=== PATIENT | female | born 1945 | race Caucasian/White ===

== ENCOUNTER 2016-12-13 14:07 | Outpatient (CLI) | payer MEDICARE | END 2016-12-13 14:08 | disposition home or self-care (01) | DX: I10 Essential (primary) hypertension (principal); E78.5 Hyperlipidemia, unspecified; E03.9 Hypothyroidism, unspecified ==

== ENCOUNTER 2017-03-31 08:08 | Outpatient (CLI) | payer MEDICARE | END 2017-03-31 08:09 | disposition home or self-care (01) | LOC: LAB.WCP 08:08 | PROVIDERS: ATTEND Physician Assistant Medical | DX: E03.9 Hypothyroidism, unspecified (principal) | CPT/HCPCS: 36415; 84443 ==

== ENCOUNTER 2017-06-19 10:44 | Outpatient (CLI) | payer MEDICARE | END 2017-06-19 10:45 | disposition home or self-care (01) | LOC: LAB.WCP 10:44 | PROVIDERS: ATTEND Physician Assistant Medical | DX: E03.9 Hypothyroidism, unspecified (principal) | CPT/HCPCS: 36415; 84443 ==

== ENCOUNTER 2017-07-11 13:16 | Outpatient (CLI) | payer MEDICARE ==
--- NOTE | 2017-07-12 16:52 | Mammography Report ---
DIGITAL SCREENING MAMMOGRAM: 07/11/2017 CLINICAL INDICATION: A 71-year-old with history of late childbearing for screening. COMPARISON: 12/2015, 10/2014, 07/2013, 06/2012, 05/2011, 04/2010. TECHNIQUE: Routine CC and MLO projections were obtained of the breasts. FINDINGS: Scattered fibroglandular tissue is present within the breasts. There are no dominant mass es, suspicious microcalcifications, or secondary signs of malignancy. In comparison to the previous studies, there are no significant changes. ASSESSMENT: NO MAMMOGRAPHIC EVIDENCE OF MALIGNANCY. NO SIGNIFICANT INTERVAL CHANGES. RECOMMENDATION: Screening mammography is recommended annually. BIRADS category 1 - negative. STANDARD QUALIFYING STATEMENTS 1. This examination was reviewed with the aid of Computed-Aided Detection (CAD). 2. A negative or benign imaging report should not delay biopsy if clinically suspicious findings are present. Consider surgical consultation if warranted. More than 5% of cancers are not identified b y imaging. 3. Dense breasts may obscure an underlying neoplasm. JOB #: [id number] EXT JOB #:[id number]
== END 2017-07-11 13:17 | disposition home or self-care (01) ==
LOC: DI 13:16
PROVIDERS: ATTEND Physician Assistant Medical
DX: Z12.31 Encounter for screening mammogram for malignant neoplasm of breast (principal)
CPT/HCPCS: 77067

== ENCOUNTER 2017-12-15 14:06 | Outpatient (CLI) | payer MEDICARE ==
[2017-12-15 19:01] LABS: BASOPHILS # (AUTO) 0.1 10^3/uL (0.0-0.1); BASOPHILS % (AUTO) 0.9 %; EOSINOPHILS # (AUTO) 0.3 10^3/uL (0.0-0.7); EOSINOPHILS % (AUTO) 2.6 %; HGB - HEMOGLOBIN 12.9 g/dL (12.0-16.0); LYMPHOCYTES # (AUTO) 1.6 10^3/uL (1.5-3.5); LYMPHOCYTES % (AUTO) 16.5 %; MEAN CORPUSCULAR HEMOGLOBIN 28.8 pg (27.0-31.0); MEAN CORPUSCULAR HGB CONC 32.7 g/dL (32.0-36.0); MEAN CORPUSCULAR VOLUME 88.2 fL (81.0-99.0); MONOCYTES # (AUTO) 0.7 10^3/uL (0.0-1.0); MONOCYTES % (AUTO) 7.7 %; NEUTROPHILS # (AUTO) 6.9 10^3/uL (1.5-6.6); NEUTROPHILS % (AUTO) 72.3 %; PLT - PLATELET COUNT 234 10^3/uL (130-450); RED BLOOD COUNT 4.47 10^6/uL (4.20-5.40); RED CELL DISTRIBUTION WIDTH 13.8 % (12.0-15.0); WHITE BLOOD COUNT 9.6 x10^3/uL (4.8-10.8)
== END 2017-12-15 14:07 | disposition home or self-care (01) ==
LOC: LAB.WCP 14:06
PROVIDERS: ATTEND Physician Assistant
DX: M10.9 Gout, unspecified (principal); M00.849 Arthritis due to other bacteria, unspecified hand
CPT/HCPCS: 36415; 84550; 85025

== ENCOUNTER 2018-01-16 07:57 | Outpatient (CLI) | payer MEDICARE ==
[2018-01-16 12:47] LABS: BASOPHILS # (AUTO) 0.1 10^3/uL (0.0-0.1); BASOPHILS % (AUTO) 1.3 %; EOSINOPHILS # (AUTO) 0.4 10^3/uL (0.0-0.7); EOSINOPHILS % (AUTO) 7.8 %; HGB - HEMOGLOBIN 13.3 g/dL (12.0-16.0); LYMPHOCYTES # (AUTO) 1.6 10^3/uL (1.5-3.5); LYMPHOCYTES % (AUTO) 30.7 %; MEAN CORPUSCULAR HEMOGLOBIN 29.6 pg (27.0-31.0); MEAN CORPUSCULAR HGB CONC 33.8 g/dL (32.0-36.0); MEAN CORPUSCULAR VOLUME 87.7 fL (81.0-99.0); MEAN PLATELET VOLUME 10.1 fL (7.9-10.8); MONOCYTES # (AUTO) 0.5 10^3/uL (0.0-1.0); MONOCYTES % (AUTO) 9.2 %; NEUTROPHILS # (AUTO) 2.6 10^3/uL (1.5-6.6); PLT - PLATELET COUNT 211 10^3/uL (130-450); WHITE BLOOD COUNT 5.2 x10^3/uL (4.8-10.8)
[2018-01-16 13:13] LABS: ALBUMIN 4.1 g/dL (3.2-5.5); ALBUMIN/GLOBULIN RATIO 1.6 (1.0-2.2); ALKALINE PHOSPHATASE 63 IU/L (42-121); ALT ALANINE AMINOTRANSFERASE 28 IU/L (10-60); AST ASPARTATE AMINOTRANSFERASE 26 IU/L (10-42); BILIRUBIN,TOTAL 0.5 mg/dL (0.2-1.0); BUN - BLOOD UREA NITROGEN 25 mg/dL (6-20); CALCIUM 9.1 mg/dL (8.5-10.3); CARBON DIOXIDE - CO2 30 mmol/L (21-32); CHLORIDE 103 mmol/L (101-111); CHOL/HDL RATIO 3.1 (<4.4); CHOLESTEROL 172 mg/dL; CREATININE 1.1 mg/dL (0.4-1.0); GFR - MDRD 49 (>89); GLUCOSE 93 mg/dL (70-100); HDL CHOLESTEROL 56 mg/dL; LDL CHOLESTEROL,CALCULATED 93 mg/dL; LDL/HDL RATIO 1.7 (<4.4); SODIUM 139 mmol/L (135-145); TOTAL PROTEIN 6.6 g/dL (6.7-8.2); URIC ACID 7.8 mg/dL (2.6-7.2); VLDL CHOLESTEROL 23 mg/dL
== END 2018-01-16 07:58 | disposition home or self-care (01) ==
LOC: LAB.WCP 07:57
PROVIDERS: ATTEND Physician Assistant Medical
DX: E78.5 Hyperlipidemia, unspecified (principal); E03.9 Hypothyroidism, unspecified; M10.9 Gout, unspecified; J30.2 Other seasonal allergic rhinitis
CPT/HCPCS: 36415; 80053; 80061; 83721; 84443; 84550; 85025

== ENCOUNTER → 2018-07-27 | Outpatient (CLI) | payer MEDICARE ==
[2018-07-27 13:18] LABS: ALBUMIN 3.9 g/dL (3.2-5.5); ALBUMIN/GLOBULIN RATIO 1.4 (1.0-2.2); ALKALINE PHOSPHATASE 70 IU/L (42-121); ALT ALANINE AMINOTRANSFERASE 29 IU/L (10-60); AST ASPARTATE AMINOTRANSFERASE 26 IU/L (10-42); BILIRUBIN,TOTAL 0.8 mg/dL (0.2-1.0); BUN - BLOOD UREA NITROGEN 28 mg/dL (6-20); CALCIUM 9.1 mg/dL (8.5-10.3); CARBON DIOXIDE - CO2 29 mmol/L (21-32); CHLORIDE 102 mmol/L (101-111); CHOL/HDL RATIO 2.4 (<4.4); CHOLESTEROL 166 mg/dL; CREATININE 1.1 mg/dL (0.4-1.0); GFR - MDRD 49 (>89); GLUCOSE 89 mg/dL (70-100); HDL CHOLESTEROL 70 mg/dL; LDL CHOLESTEROL,CALCULATED 82 mg/dL; LDL/HDL RATIO 1.2 (<4.4); SODIUM 139 mmol/L (135-145); TOTAL PROTEIN 6.6 g/dL (6.7-8.2); VLDL CHOLESTEROL 14 mg/dL
== END ==
LOC: LAB.WCP 08:13
PROVIDERS: ATTEND Physician Assistant Medical
DX: E78.5 Hyperlipidemia, unspecified (principal)
CPT/HCPCS: 36415; 80053; 80061; 83721; 84550

== ENCOUNTER 2018-10-09 11:10 | Outpatient (CLI) | payer MEDICARE ==
--- NOTE | 2018-10-09 15:59 | CT Report ---
Reason: DOUBLE VISION Procedure Date: 10/09/2018 Accession Number: [id number] / [id number] Procedure: CT - Head W/O CPT Code: FULL RESULT: EXAM: CT HEAD EXAM DATE: 10/09/2018 11:39 AM. CLINICAL HISTORY: Double vision. COMPARISON: None. TECHNIQUE: Multiaxial CT images were obtained from the foramen magnum to the vertex. Reformats: Sagittal and coronal. IV contrast: None. In accordance with CT protocol optimization, one or more of the following dose reduction techniques were utilized for this exam: automated exposure control, adjustment of mA and/or KV based on patient size, or use of iterative reconstructive technique. FINDINGS: Parenchyma: No intraparenchymal hemorrhage. No evidence of mass, midline shift. Moran-white differentiation is distinct. Basal ganglia mineralization bilaterally. Extraaxial Spaces: Normal for age. No subdural or epidural collections identified. Ventricles: Normal in size and position. Sinuses and Orbits: Imaged paranasal sinuses, orbits, and mastoids show no significant abnormality. Bones: No evidence of fracture or calvarial defect. Other: None. IMPRESSION: No encephalomalacia or intracranial hemorrhage is detected. RADIA
== END 2018-10-09 11:11 | disposition home or self-care (01) ==
LOC: DI 11:10
PROVIDERS: ATTEND Physician Assistant Medical
DX: H53.2 Diplopia (principal)
CPT/HCPCS: 70450

== ENCOUNTER 2018-10-31 12:44 | Outpatient (CLI) | payer MEDICARE ==
[2018-10-31] MEDS ORDERED: GADOBUTROL 7.5 MMOL/7.5 ML VIAL ONE (13:03)
[2018-10-31] MEDS ORDERED: GADOBUTROL 7.5 MMOL/7.5 ML VIAL IVP ONE (13:39)
--- NOTE | 2018-10-31 15:30 | MRI Report ---
Reason: DOUBLE VISION Procedure Date: 10/31/2018 Accession Number: [id number] / [id number] Procedure: MRI - Brain W/WO CPT Code: FULL RESULT: EXAM: MRI BRAIN WITHOUT AND WITH CONTRAST. EXAM DATE: 10/31/2018 02:03 PM. CLINICAL HISTORY: Double vision. COMPARISON: No prior brain MRI. TECHNIQUE: Multiplanar, multisequence T1-weighted and fluid-sensitive MR sequences of the brain were performed. Sequences optimized for routine evaluation. Other: None. IV Contrast: Without and with 6.5 mL Gadavist. FINDINGS: Brain Volume: Normal for age. Parenchyma: No restricted diffusion to suggest acute or recent ischemic infarct. No cerebral hemorrhage. No mass effect, midline shift or abnormal subdural fluid collection. Mild to moderate nonspecific cerebral white matter disease. Multiple regions of patchy and nodular abnormal T2 hyperintensity are present in both cerebral hemispheres, likely secondary to aging and chronic microangiopathy. No abnormal enhancement. No evidence for intracranial enhancing or space occupying mass. Ventricles/Cisterns: No hydrocephalus. No abnormal extra-axial fluid collection or hemorrhage. Orbits: Previous lens extractions. No evidence for exophthalmos or intraorbital space occupying mass. Sella Turcica: No space-occupying mass. Unremarkable appearance of the optic chiasm. IAC: Symmetric and unremarkable. Vasculature: Normal signal flow void is seen in the major arterial structures at the skull base. The dural sinuses are patent and enhance normally. Sinuses: No acute sinus disease. Bones: Susceptibility artifact from multilevel posterior cervical spine fusion hardware. Other: None. IMPRESSION: No acute abnormality or enhancing mass. Chronic appearing age-related changes. No specific lesion identified to explain double vision. RADIA
== END 2018-10-31 12:45 | disposition home or self-care (01) ==
LOC: DI 12:44
PROVIDERS: ATTEND Physician Assistant Medical
DX: H53.2 Diplopia (principal)
CPT/HCPCS: 70553; A9585

== ENCOUNTER 2018-11-30 08:00 | Outpatient (CLI) | payer MEDICARE | END 2018-11-30 23:59 | disposition home or self-care (01) | LOC: LAB.WCP 08:00 | PROVIDERS: ATTEND Physician Assistant Medical | DX: Z51.81 Encounter for therapeutic drug level monitoring (principal); Z86.711 Personal history of pulmonary embolism; Z79.01 Long term (current) use of anticoagulants ==

== ENCOUNTER 2018-12-28 08:00 | Outpatient (CLI) | payer MEDICARE | END 2018-12-28 23:59 | disposition home or self-care (01) | LOC: LAB.WCP 08:00 | PROVIDERS: ATTEND Family Medicine | DX: Z51.81 Encounter for therapeutic drug level monitoring (principal); Z86.711 Personal history of pulmonary embolism; Z79.01 Long term (current) use of anticoagulants ==

== ENCOUNTER 2019-01-29 15:25 | Outpatient (CLI) | payer MEDICARE ==
[2019-01-29 19:58] LABS: BUN - BLOOD UREA NITROGEN 29 mg/dL (6-20); CALCIUM 9.1 mg/dL (8.5-10.3); CARBON DIOXIDE - CO2 29 mmol/L (21-32); CHLORIDE 104 mmol/L (101-111); CREATININE 1.2 mg/dL (0.4-1.0); GFR - MDRD 44 (>89); GLUCOSE 150 mg/dL (70-100); SODIUM 142 mmol/L (135-145)
[2019-01-29 20:29] LABS: RHEUMATOID FACTOR NEGATIVE (Negative)
[2019-01-29 20:55] LABS: CRP - C-REACTIVE PROTEIN < 1.0 mg/dL (0-1.0)
[2019-02-01 14:42] LABS: ANA SCREEN NEGATIVE (NEGATIVE)
== END 2019-01-29 23:59 | disposition home or self-care (01) ==
LOC: LAB.WCP 15:25
PROVIDERS: ATTEND Physician Assistant
DX: M25.50 Pain in unspecified joint (principal)
CPT/HCPCS: 36415; 80048; 85651; 86038; 86140; 86430

== ENCOUNTER 2019-02-18 08:40 | Outpatient (CLI) | payer MEDICARE ==
[2019-02-18 12:35] LABS: ALBUMIN 4.1 g/dL (3.2-5.5); ALBUMIN/GLOBULIN RATIO 1.6 (1.0-2.2); ALKALINE PHOSPHATASE 66 IU/L (42-121); ALT ALANINE AMINOTRANSFERASE 36 IU/L (10-60); AST ASPARTATE AMINOTRANSFERASE 28 IU/L (10-42); BUN - BLOOD UREA NITROGEN 26 mg/dL (6-20); CALCIUM 9.5 mg/dL (8.5-10.3); CARBON DIOXIDE - CO2 29 mmol/L (21-32); CHLORIDE 104 mmol/L (101-111); CHOL/HDL RATIO 2.3 (<4.4); CHOLESTEROL 161 mg/dL; CREATININE 1.1 mg/dL (0.4-1.0); GFR - MDRD 49 (>89); GLUCOSE 101 mg/dL (70-100); HDL CHOLESTEROL 70 mg/dL; LDL CHOLESTEROL,CALCULATED 78 mg/dL; LDL/HDL RATIO 1.1 (<4.4); SODIUM 141 mmol/L (135-145); TOTAL PROTEIN 6.6 g/dL (6.7-8.2); VLDL CHOLESTEROL 13 mg/dL
[2019-02-18 12:43] LABS: BASOPHILS # (AUTO) 0.1 10^3/uL (0.0-0.1); BASOPHILS % (AUTO) 1.5 %; EOSINOPHILS # (AUTO) 0.3 10^3/uL (0.0-0.7); EOSINOPHILS % (AUTO) 5.7 %; HGB - HEMOGLOBIN 13.1 g/dL (12.0-16.0); LYMPHOCYTES # (AUTO) 1.4 10^3/uL (1.5-3.5); LYMPHOCYTES % (AUTO) 27.9 %; MEAN CORPUSCULAR HEMOGLOBIN 29.1 pg (27.0-31.0); MEAN CORPUSCULAR VOLUME 88.3 fL (81.0-99.0); MEAN PLATELET VOLUME 10.2 fL (7.9-10.8); MONOCYTES # (AUTO) 0.6 10^3/uL (0.0-1.0); MONOCYTES % (AUTO) 12.5 %; NEUTROPHILS # (AUTO) 2.7 10^3/uL (1.5-6.6); NEUTROPHILS % (AUTO) 52.4 %; PLT - PLATELET COUNT 213 10^3/uL (130-450); RED BLOOD COUNT 4.48 10^6/uL (4.20-5.40); RED CELL DISTRIBUTION WIDTH 14.7 % (12.0-15.0); WHITE BLOOD COUNT 5.2 x10^3/uL (4.8-10.8)
== END 2019-02-18 08:41 | disposition home or self-care (01) ==
LOC: LAB.WCP 08:40
PROVIDERS: ATTEND Physician Assistant Medical
DX: E03.9 Hypothyroidism, unspecified (principal); E78.5 Hyperlipidemia, unspecified; J30.2 Other seasonal allergic rhinitis
CPT/HCPCS: 36415; 80053; 80061; 83721; 84443; 85025

== ENCOUNTER 2019-03-05 13:59 | Outpatient (CLI) | payer MEDICARE ==
--- NOTE | 2019-03-05 15:11 | XRAY Report ---
Reason: OSTEOARTHRITIS,KNEES BILATERAL Procedure Date: 03/05/2019 Accession Number: [id number] / [id number] Procedure: XR - Knee 3 View BILAT CPT Code: FULL RESULT: EXAMS: 1. RIGHT KNEE RADIOGRAPHY 2. LEFT KNEE RADIOGRAPHY EXAM DATE:03/05/2019 02:23 PM. CLINICAL HISTORY:Osteoarthritis, knees bilateral. COMPARISON: KNEE 4 VIEW RT 07/23/2013 10:19 AM. TECHNIQUE: 3 views each. FINDINGS: Right Knee: Bones: Normal. No fractures or bone lesions. Joints: Tricompartmental joint space loss with marginal osteophytosis, overall moderate. No significant joint effusion or subluxation. Soft Tissues: Normal. No soft tissue swelling. Left Knee: Bones: Normal. No fractures or bone lesions. Joints: Tricompartmental joint space loss with marginal osteophytosis and without significant effusion, overall moderate. No subluxation. Soft Tissues: Normal. No soft tissue swelling. IMPRESSION: Bilateral tricompartmental degenerative changes. RADIA
== END 2019-03-05 14:00 | disposition home or self-care (01) ==
LOC: DI 13:59
PROVIDERS: ATTEND Physician Assistant Medical
DX: M17.0 Bilateral primary osteoarthritis of knee (principal)

== ENCOUNTER 2019-04-19 08:00 | Outpatient (CLI) | payer MEDICARE | END 2019-04-19 08:01 | disposition home or self-care (01) | LOC: LAB.WCP 08:00 | PROVIDERS: ATTEND Physician Assistant Medical | DX: I80.209 Phlebitis and thrombophlebitis of unspecified deep vessels of unspecified lower extremity (principal); Z86.711 Personal history of pulmonary embolism; Z79.01 Long term (current) use of anticoagulants ==

== ENCOUNTER 2019-05-17 08:00 | Outpatient (CLI) | payer MEDICARE | END 2019-05-17 23:59 | disposition home or self-care (01) | LOC: LAB.WCP 08:00 | PROVIDERS: ATTEND Physician Assistant | DX: Z79.01 Long term (current) use of anticoagulants (principal); Z86.711 Personal history of pulmonary embolism ==

== ENCOUNTER 2019-06-14 08:00 | Outpatient (CLI) | payer MEDICARE | END 2019-06-14 23:59 | disposition home or self-care (01) | LOC: LAB.WCP 08:00 | PROVIDERS: ATTEND Family Medicine | DX: Z86.711 Personal history of pulmonary embolism (principal); Z79.01 Long term (current) use of anticoagulants ==

== ENCOUNTER 2019-06-28 08:00 | Outpatient (CLI) | payer MEDICARE | END 2019-06-28 23:59 | disposition home or self-care (01) | LOC: LAB.WCP 08:00 | PROVIDERS: ATTEND Family Medicine | DX: Z79.01 Long term (current) use of anticoagulants (principal); Z86.711 Personal history of pulmonary embolism ==

== ENCOUNTER 2019-07-19 08:00 | Outpatient (CLI) | payer MEDICARE | END 2019-07-19 23:59 | disposition home or self-care (01) | LOC: LAB.WCP 08:00 | PROVIDERS: ATTEND Physician Assistant | DX: I80.209 Phlebitis and thrombophlebitis of unspecified deep vessels of unspecified lower extremity (principal); Z86.711 Personal history of pulmonary embolism; Z79.01 Long term (current) use of anticoagulants ==

== ENCOUNTER 2019-08-06 08:00 | Outpatient (CLI) | payer MEDICARE | END 2019-08-06 23:59 | disposition home or self-care (01) | LOC: LAB.WCP 08:00 | PROVIDERS: ATTEND Physician Assistant Medical | DX: Z79.01 Long term (current) use of anticoagulants (principal); Z86.711 Personal history of pulmonary embolism; I80.9 Phlebitis and thrombophlebitis of unspecified site ==

== ENCOUNTER 2019-08-20 07:00 | Outpatient (CLI) | payer MEDICARE | END 2019-08-20 23:59 | disposition home or self-care (01) | LOC: LAB.WCP 07:00 | PROVIDERS: ATTEND Physician Assistant Medical | DX: M10.9 Gout, unspecified (principal) | CPT/HCPCS: 36415; 84550 ==

== ENCOUNTER 2019-08-27 08:00 | Outpatient (CLI) | payer MEDICARE | END 2019-08-27 23:59 | disposition home or self-care (01) | LOC: LAB.WCP 08:00 | PROVIDERS: ATTEND Physician Assistant Medical | DX: Z86.711 Personal history of pulmonary embolism (principal); Z79.01 Long term (current) use of anticoagulants ==

== ENCOUNTER 2019-08-30 12:54 | Emergency (ER) | payer MEDICARE ==
--- NOTE | 2019-08-30 13:45 | ED Physician Documentation ---
PD HPI CHEST PAIN - Stated complaint Stated Complaint: CHEST PX - Chief complaint Chief Complaint: Cardiac - History obtained from History obtained from: Patient - History of Present Illness Timing - onset: How many days ago (3) Timing - onset during: Light activity (notes some discomfort in chest when getting up and moving torso. Not noted when lying down. But not associated with walking/activity per se, noted more with the change position and some with lifting arms. No pain with deep breathing.). No: Rest Timing - duration: Minutes Timing - details: Intermittant Quality: Tightness, Aching Location: Substernal Radiation: No: Jaw, Neck, Back Improved by: Other (just fades in few minutes without particular intervention) Associated symptoms: No: Shortness of air, Nausea, Feeling faint / dizzy, Palpitations Similar symptoms before: Has not had sx before Recently seen: Not recently seen Review of Systems Constitutional: denies: Fever, Chills, Myalgias Nose: denies: Rhinorrhea / runny nose, Congestion Throat: denies: Sore throat Cardiac: reports: Chest pain / pressure. denies: Palpitations, Pedal edema, Calf pain Respiratory: denies: Dyspnea, Cough, Wheezing GI: denies: Abdominal Pain, Nausea, Vomiting, Diarrhea Skin: denies: Rash, Lesions Neurologic: denies: Focal weakness, Near syncope, Syncope Endocrine: denies: Weight loss Immunocompromised: denies: Immunocompromised PD PAST MEDICAL HISTORY - Past Medical History Past Medical History: Yes Cardiovascular: Hypertension, Deep vein thrombosis Respiratory: None Endocrine/Autoimmune: None GI: None Musculoskeletal: Osteoarthritis Derm: None - Past Surgical History Past Surgical History: Yes General: Cholecystectomy, 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 HEENT: Cataracts, Tonsil/Adenoidectomy - Present Medications Home Medications: Ambulatory Orders Medication Instructions Recorded Confirmed Levothyroxine [Synthroid] 50 mcg PO QDAC 07/11/13 07/11/13 Lisinopril [Zestril] 40 mg PO DAILY 07/11/13 07/11/13 Lovastatin [Mevacor] 40 mg ORAL DAILY 07/11/13 07/11/13 Warfarin [Coumadin] 5 mg ORAL DAILY 07/11/13 07/11/13 Cholecalciferol (Vitamin D3) 400 unit PO 10/17/13 10/17/13 [Vitamin D] Cyclobenzaprine [Flexeril] 10 mg PO TID PRN 10/17/13 10/17/13 Fluticasone Propionate [Flovent 50 mcg IH 10/17/13 10/17/13 Diskus] Multivitamin [Multivitamins] 1 each PO 10/17/13 10/17/13 hydroCHLOROthiazide 12.5 mg PO 10/17/13 10/17/13 [Hydrochlorothiazide] Colchicine 0.6 mg PO 08/30/19 - Allergies Allergies/Adverse Reactions: Allergies Allergy/AdvReac Type Severity Reaction Status Date / Time No Known Drug Allergies Allergy Verified 08/30/19 13:04 - Social History Does the pt smoke?: No Smoking Status: Never smoker Does the pt drink ETOH?: No Does the pt have substance abuse?: No - Family History Family history: reports: CAD. denies: Sudden - Immunizations Immunizations are current?: Yes - POLST Patient has POLST: No PD ED PE NORMAL - Vitals Vital signs reviewed: Yes - General General: Alert and oriented X 3, No acute distress, Well developed/nourished - HEENT HEENT: Ears normal, Pharynx benign - Neck Neck: Supple, no meningeal sign, No adenopathy - Cardiac Cardiac: RRR, No murmur - Respiratory Respiratory: Clear bilaterally, Other (no chestwall tenderness) - Abdomen Abdomen: Normal bowel sounds, Soft, Non tender, Non distended - Back Back: No CVA TTP - Derm Derm: Normal color, Warm and dry - Extremities Extremities: No tenderness to palpate, Normal ROM s pain, No edema, No calf tenderness / cord Results - Vitals Vitals: Vital Signs - 24 hr 08/30/19 08/30/19 13:01 14:24 Temperature 36.7 C Heart Rate 78 76 Respiratory 18 17 Rate Blood Pressure 168/84 H 167/78 H O2 Saturation 100 97 Oxygen O2 Source Room air - EKG (time done) 13:01 Rate: Rate (enter#) (77) Rhythm: NSR [place]: Normal Intervals: Normal VT, Wide QRS QRS: Normal Ischemia: Normal ST segments. No: ST elevation c/w ischemia, ST depression - Labs Labs: Laboratory Tests 08/30/19 08/30/19 08/30/19 14:32 14:32 14:32 WBC 8.8 RBC 4.30 Hgb 12.7 Hct 38.7 MCV 90.0 MCH 29.5 MCHC 32.8 RDW 14.3 Plt Count 222 MPV 11.2 H Neut # (Auto) 5.5 Lymph # (Auto) 2.0 [place] # (Auto) 1.1 H Eos # (Auto) 0.2 Baso # (Auto) 0.1 Absolute Nucleated RBC 0.00 Nucleated RBC % 0.0 PT 25.8 H INR 2.4 H D-Dimer 217.0 Sodium 142 Potassium 4.2 Chloride 102 Carbon Dioxide 29 Anion Gap 11.0 BUN 25 H Creatinine 1.2 H Estimated GFR (MDRD) 44 L Glucose 93 Calcium 9.3 Magnesium 2.0 Total Bilirubin 0.7 AST 43 H ALT 59 Alkaline Phosphatase 99 Troponin I High Sens B-Natriuretic Peptide Total Protein 7.2 Albumin 4.1 Globulin 3.1 Albumin/Globulin Ratio 1.3 Lipase 45 08/30/19 08/30/19 14:32 14:32 WBC RBC Hgb Hct MCV MCH MCHC RDW Plt Count MPV Neut # (Auto) Lymph # (Auto) [place] # (Auto) Eos # (Auto) Baso # (Auto) Absolute Nucleated RBC Nucleated RBC % PT INR D-Dimer Sodium Potassium Chloride Carbon Dioxide Anion Gap BUN Creatinine Estimated GFR (MDRD) Glucose Calcium Magnesium Total Bilirubin AST ALT Alkaline Phosphatase Troponin I High Sens 3.8 B-Natriuretic Peptide 47 Total Protein Albumin Globulin Albumin/Globulin Ratio Lipase - Rads (name of study) chest xray Radiology: Prelim report reviewed (normal chest), See rad report Departure - Departure Disposition: 01 Home, Self Care Clinical Impression: Substernal chest pain Condition: Stable Record reviewed to determine appropriate education?: Yes Instructions: ED Chest Pain Atypical Unkn Cause Follow-Up: Keely Cuevas PA-C [Primary Care Provider] - Comments: Your tests here appear normal so not showing a serious cause of the pain episodes. It may be muscular. It could be esophageal. You can use Tylenol or try antacids for the pain episodes. Follow-up with your primary care if continued beyond a few more days. Return if other symptoms develop or more concerning pain. Discharge Date/Time: 08/30/19 15:48
[2019-08-30] MEDS ORDERED: LIDOCAINE VISCOUS 2% 15 ML UDC MM STA (14:15)
[2019-08-30] MEDS ORDERED: MAG HYDROX/AL HYDROX/SIMETH 30 ML UDC PO STA (14:15)
[2019-08-30 14:25] VITALS: BP 167/78
[2019-08-30 14:38] LABS: BASOPHILS # (AUTO) 0.1 10^3/uL (0.0-0.1); BASOPHILS % (AUTO) 0.9 %; EOSINOPHILS # (AUTO) 0.2 10^3/uL (0.0-0.7); EOSINOPHILS % (AUTO) 2.3 %; HGB - HEMOGLOBIN 12.7 g/dL (12.0-16.0); LYMPHOCYTES % (AUTO) 22.8 %; MEAN CORPUSCULAR HEMOGLOBIN 29.5 pg (27.0-31.0); MEAN CORPUSCULAR HGB CONC 32.8 g/dL (32.0-36.0); MEAN PLATELET VOLUME 11.2 fL (7.9-10.8); MONOCYTES # (AUTO) 1.1 10^3/uL (0.0-1.0); MONOCYTES % (AUTO) 11.9 %; NEUTROPHILS # (AUTO) 5.5 10^3/uL (1.5-6.6); NEUTROPHILS % (AUTO) 61.9 %; PLT - PLATELET COUNT 222 10^3/uL (130-450); RED CELL DISTRIBUTION WIDTH 14.3 % (12.0-15.0); WHITE BLOOD COUNT 8.8 x10^3/uL (4.8-10.8)
[2019-08-30 14:53] LABS: ALBUMIN 4.1 g/dL (3.2-5.5); ALBUMIN/GLOBULIN RATIO 1.3 (1.0-2.2); BILIRUBIN,TOTAL 0.7 mg/dL (0.2-1.0); CALCIUM 9.3 mg/dL (8.5-10.3); CREATININE 1.2 mg/dL (0.4-1.0); TOTAL PROTEIN 7.2 g/dL (6.7-8.2)
--- NOTE | 2019-08-30 14:58 | XRAY Report ---
Reason: anterior chest pain few days Procedure Date: 08/30/2019 Accession Number: [id number] / [id number] Procedure: XR - Chest 2 View X-Ray CPT Code: 32629 Final Report FULL RESULT: EXAM: CHEST RADIOGRAPHY EXAM DATE: 08/30/2019 02:50 PM. CLINICAL HISTORY: Anterior chest pain few days. COMPARISON: None. TECHNIQUE: 2 views. FINDINGS: Lungs/Pleura: No focal opacities evident. No pleural effusion. No pneumothorax. Normal volumes. Mediastinum: Heart and mediastinal contours are unremarkable. Other: None. IMPRESSION: Normal 2-view chest radiography. RADIA
[2019-08-30 15:00] LABS: INR 2.4 (0.8-1.2); PT - PROTHROMBIN TIME 25.8 secs (9.9-12.6)
== END 2019-08-30 15:48 | disposition home or self-care (01) ==
LOC: ED 12:54
DX: R07.2 Precordial pain (principal); I10 Essential (primary) hypertension
CPT/HCPCS: 36415; 71046; 80053; 83690; 83735; 83880; 84484; 85025; 85379; 85610; 93005; 99284; A9270

== ENCOUNTER 2019-09-10 08:00 | Outpatient (CLI) | payer MEDICARE | END 2019-09-10 23:59 | disposition home or self-care (01) | LOC: LAB.WCP 08:00 | PROVIDERS: ATTEND Physician Assistant Medical | DX: Z79.01 Long term (current) use of anticoagulants (principal); Z86.711 Personal history of pulmonary embolism ==

== ENCOUNTER 2019-09-27 08:00 | Outpatient (CLI) | payer MEDICARE | END 2019-09-27 23:59 | disposition home or self-care (01) | LOC: LAB.WCP 08:00 | PROVIDERS: ATTEND Family Medicine | DX: Z79.01 Long term (current) use of anticoagulants (principal); Z86.711 Personal history of pulmonary embolism ==

== ENCOUNTER 2019-10-18 08:00 | Outpatient (CLI) | payer MEDICARE | END 2019-10-18 23:59 | disposition home or self-care (01) | LOC: LAB.WCP 08:00 | PROVIDERS: ATTEND Family Medicine | DX: Z79.01 Long term (current) use of anticoagulants (principal); Z86.711 Personal history of pulmonary embolism; I82.409 Acute embolism and thrombosis of unspecified deep veins of unspecified lower extremity ==

== ENCOUNTER 2019-11-15 08:00 | Outpatient (CLI) | payer MEDICARE | END 2019-11-15 23:59 | disposition home or self-care (01) | LOC: LAB.WCP 08:00 | PROVIDERS: ATTEND Family Medicine | DX: Z79.01 Long term (current) use of anticoagulants (principal); Z86.711 Personal history of pulmonary embolism; I82.409 Acute embolism and thrombosis of unspecified deep veins of unspecified lower extremity ==

== ENCOUNTER 2019-12-03 16:16 | Outpatient (CLI) | payer MEDICARE ==
--- NOTE | 2019-12-04 08:38 | Mammography Report ---
Reason: SCREENING MAMMO Procedure Date: 12/03/2019 Accession Number: [id number] / [id number] Procedure: [facility] - Screening Mammo w/Mariano CPT Code: Final Report FULL RESULT: EXAM: Screening Mammo w/Mariano DATE: 12/03/2019 4:53 PM CLINICAL HISTORY: Screening encounter. History of late childbearing. TECHNIQUE: (B) - Bilateral CC and MLO views were obtained. COMPARISON: 07/11/2017 through 06/15/2012. PARENCHYMAL PATTERN: (A) - The breast(s) demonstrate(s) scattered fibroglandular densities. FINDINGS: There are no suspicious masses, calcifications, or areas of distortion. IMPRESSION: Negative examination. BI-RADS category 1. RECOMMENDATION: (ANNUAL) - Recommend routine annual screening mammography. BI-RADS CATEGORY: (1) - Negative. STANDARD QUALIFYING STATEMENTS: 1. This examination was not reviewed with the aid of Computer-Aided Detection (CAD). 2. A negative or benign imaging report should not preclude biopsy if clinically suspicious findings are present. 3. Dense breasts may obscure an underlying neoplasm. 4. This examination was reviewed with the aid of 3D breast imaging (tomosynthesis).
== END 2019-12-03 16:17 | disposition home or self-care (01) ==
LOC: DI 16:16
DX: Z12.31 Encounter for screening mammogram for malignant neoplasm of breast (principal)
CPT/HCPCS: 77063; 77067

== ENCOUNTER 2019-12-13 08:00 | Outpatient (CLI) | payer MEDICARE | END 2019-12-13 23:59 | disposition home or self-care (01) | LOC: LAB.WCP 08:00 | PROVIDERS: ATTEND Physician Assistant Medical | DX: I80.209 Phlebitis and thrombophlebitis of unspecified deep vessels of unspecified lower extremity (principal); Z79.01 Long term (current) use of anticoagulants; Z86.711 Personal history of pulmonary embolism ==

== ENCOUNTER 2020-01-10 08:00 | Outpatient (CLI) | payer MEDICARE | END 2020-01-10 23:59 | disposition home or self-care (01) | LOC: LAB.WCP 08:00 | PROVIDERS: ATTEND Physician Assistant Medical | DX: Z86.711 Personal history of pulmonary embolism (principal); Z79.01 Long term (current) use of anticoagulants ==

== ENCOUNTER 2020-01-24 08:00 | Outpatient (CLI) | payer MEDICARE | END 2020-01-24 23:59 | disposition home or self-care (01) | LOC: LAB.WCP 08:00 | PROVIDERS: ATTEND Physician Assistant Medical | DX: I82.409 Acute embolism and thrombosis of unspecified deep veins of unspecified lower extremity (principal); Z79.01 Long term (current) use of anticoagulants; Z86.711 Personal history of pulmonary embolism ==

== ENCOUNTER 2020-02-21 08:00 | Outpatient (CLI) | payer MEDICARE | END 2020-02-21 23:59 | disposition home or self-care (01) | LOC: LAB.WCP 08:00 | PROVIDERS: ATTEND Physician Assistant Medical | DX: I82.409 Acute embolism and thrombosis of unspecified deep veins of unspecified lower extremity (principal); Z79.01 Long term (current) use of anticoagulants; Z86.711 Personal history of pulmonary embolism ==

== ENCOUNTER 2020-02-25 08:19 | Outpatient (CLI) | payer MEDICARE ==
[2020-02-25 14:07] LABS: BASOPHILS # (AUTO) 0.1 10^3/uL (0.0-0.1); BASOPHILS % (AUTO) 1.4 %; EOSINOPHILS # (AUTO) 0.3 10^3/uL (0.0-0.7); HGB - HEMOGLOBIN 12.7 g/dL (12.0-16.0); LYMPHOCYTES # (AUTO) 1.4 10^3/uL (1.5-3.5); LYMPHOCYTES % (AUTO) 27.3 %; MEAN CORPUSCULAR HEMOGLOBIN 29.7 pg (27.0-31.0); MEAN CORPUSCULAR HGB CONC 32.2 g/dL (32.0-36.0); MEAN CORPUSCULAR VOLUME 92.5 fL (81.0-99.0); MEAN PLATELET VOLUME 12.1 fL (7.9-10.8); MONOCYTES # (AUTO) 0.5 10^3/uL (0.0-1.0); MONOCYTES % (AUTO) 9.9 %; NEUTROPHILS # (AUTO) 2.9 10^3/uL (1.5-6.6); NEUTROPHILS % (AUTO) 56.2 %; PLT - PLATELET COUNT 212 10^3/uL (130-450); RED BLOOD COUNT 4.27 10^6/uL (4.20-5.40); RED CELL DISTRIBUTION WIDTH 13.8 % (12.0-15.0); WHITE BLOOD COUNT 5.2 x10^3/uL (4.8-10.8)
[2020-02-25 14:15] LABS: ALBUMIN 3.8 g/dL (3.2-5.5); ALBUMIN/GLOBULIN RATIO 1.5 (1.0-2.2); ALKALINE PHOSPHATASE 74 IU/L (42-121); ALT ALANINE AMINOTRANSFERASE 30 IU/L (10-60); AST ASPARTATE AMINOTRANSFERASE 26 IU/L (10-42); BILIRUBIN,TOTAL 0.8 mg/dL (0.2-1.0); BUN - BLOOD UREA NITROGEN 35 mg/dL (6-20); CARBON DIOXIDE - CO2 29 mmol/L (21-32); CHLORIDE 106 mmol/L (101-111); CHOL/HDL RATIO 2.1 (<4.4); CHOLESTEROL 143 mg/dL; GLUCOSE 87 mg/dL (70-100); HDL CHOLESTEROL 69 mg/dL; LDL CHOLESTEROL,CALCULATED 61 mg/dL; LDL/HDL RATIO 0.9 (<4.4); SODIUM 141 mmol/L (135-145); TOTAL PROTEIN 6.3 g/dL (6.7-8.2); URIC ACID 6.5 mg/dL (2.6-7.2); VLDL CHOLESTEROL 13 mg/dL
[2020-02-25 15:01] LABS: FREE T4 (FREE THYROXINE) 1.18 ng/dL (0.58-1.64)
== END 2020-02-25 23:59 | disposition home or self-care (01) ==
LOC: LAB.WCP 08:19
PROVIDERS: ATTEND Physician Assistant Medical
DX: I10 Essential (primary) hypertension (principal); R07.9 Chest pain, unspecified; E03.9 Hypothyroidism, unspecified; E78.5 Hyperlipidemia, unspecified; M10.9 Gout, unspecified
CPT/HCPCS: 36415; 80053; 80061; 83721; 84439; 84443; 84550; 85025

== ENCOUNTER 2020-03-20 08:00 | Outpatient (CLI) | payer MEDICARE | END 2020-03-20 23:59 | disposition home or self-care (01) | LOC: LAB.WCP 08:00 | PROVIDERS: ATTEND Physician Assistant Medical | DX: I82.409 Acute embolism and thrombosis of unspecified deep veins of unspecified lower extremity (principal); Z79.01 Long term (current) use of anticoagulants; Z86.711 Personal history of pulmonary embolism ==

== ENCOUNTER 2020-06-05 08:00 | Outpatient (CLI) | payer MEDICARE | END 2020-06-05 23:59 | disposition home or self-care (01) | LOC: LAB.WCP 08:00 | PROVIDERS: ATTEND Physician Assistant Medical | DX: I82.409 Acute embolism and thrombosis of unspecified deep veins of unspecified lower extremity (principal); Z79.01 Long term (current) use of anticoagulants; Z86.711 Personal history of pulmonary embolism ==

== ENCOUNTER 2020-07-03 08:00 | Outpatient (CLI) | payer MEDICARE | END 2020-07-03 23:59 | disposition home or self-care (01) | LOC: LAB.WCP 08:00 | PROVIDERS: ATTEND Family Medicine | DX: Z79.01 Long term (current) use of anticoagulants (principal) ==

== ENCOUNTER 2020-08-14 08:00 | Outpatient (CLI) | payer MEDICARE | END 2020-08-14 23:59 | disposition home or self-care (01) | LOC: LAB.WCP 08:00 | PROVIDERS: ATTEND Physician Assistant Medical | DX: Z79.01 Long term (current) use of anticoagulants (principal) ==

== ENCOUNTER 2020-08-31 08:00 | Outpatient (CLI) | payer MEDICARE ==
[2020-08-31 14:12] LABS: ALBUMIN 4.2 g/dL (3.2-5.5); ALBUMIN/GLOBULIN RATIO 1.7 (1.0-2.2); ALKALINE PHOSPHATASE 83 IU/L (42-121); ALT ALANINE AMINOTRANSFERASE 56 IU/L (10-60); AST ASPARTATE AMINOTRANSFERASE 45 IU/L (10-42); BILIRUBIN,TOTAL 0.7 mg/dL (0.2-1.0); BUN - BLOOD UREA NITROGEN 31 mg/dL (6-20); CALCIUM 9.4 mg/dL (8.5-10.3); CARBON DIOXIDE - CO2 27 mmol/L (21-32); CHLORIDE 106 mmol/L (101-111); CHOL/HDL RATIO 2.4 (<4.4); CHOLESTEROL 143 mg/dL; CREATININE 1.1 mg/dL (0.4-1.0); GLUCOSE 93 mg/dL (70-100); HDL CHOLESTEROL 59 mg/dL; LDL CHOLESTEROL,CALCULATED 72 mg/dL; LDL/HDL RATIO 1.2 (<4.4); SODIUM 141 mmol/L (135-145); TOTAL PROTEIN 6.7 g/dL (6.7-8.2); VLDL CHOLESTEROL 12 mg/dL
[2020-08-31 15:06] LABS: FREE T4 (FREE THYROXINE) 0.93 ng/dL (0.58-1.64)
== END 2020-08-31 23:59 | disposition home or self-care (01) ==
LOC: LAB.WCP 08:00
PROVIDERS: ATTEND Physician Assistant Medical
DX: E78.5 Hyperlipidemia, unspecified (principal); E03.9 Hypothyroidism, unspecified
CPT/HCPCS: 36415; 80053; 80061; 83721; 84439; 84443

== ENCOUNTER 2020-09-11 07:36 | Outpatient (CLI) | payer MEDICARE ==
--- NOTE | 2020-09-11 11:00 | XRAY Report ---
PROCEDURE: Lumbar Spine 2 View INDICATIONS: CHRONIC LOW BACK PAIN TECHNIQUE: 2 views of the lumbar spine were acquired. COMPARISON: None. FINDINGS: Bones: 5 [id number]-[id number]-[id number] vertebrae are present. There is trace L4-L5 and L5-S1 anterolisthesis. No vertebral body compression fractures. No suspicious bony lesions. Moderate to severe L1-L2 degenerat june disease. Mild L2-L3, L3-L4 L4-L5 and L5-S1 degenerative disease. Mild L3-L4, L4-L5 and L5-S1 face t arthropathy. Soft tissues: Overlying bowel gas pattern is normal. No suspicious soft tissue calcifications. Cyst ectomy clips. IMPRESSION: 1. Multilevel degenerative disc disease. 2. Multilevel facet arthropathy. 3. No fracture. No acute osseous lesion. If there is continued clinical concern for pathology, then M RI should be considered for further evaluation. Reviewed by: Ginette Wren MD, PhD on 09/11/2020 10:58 AM PST Approved by: Ginette Wren MD, PhD on 09/11/2020 10:58 AM PST Station ID: [id number]
== END 2020-09-11 23:59 | disposition home or self-care (01) ==
LOC: DI.WCP 07:36
PROVIDERS: ATTEND Physician Assistant Medical
DX: M51.36 Other intervertebral disc degeneration, lumbar region (principal); Z79.01 Long term (current) use of anticoagulants

== ENCOUNTER 2020-10-09 08:00 | Outpatient (CLI) | payer MEDICARE | END 2020-10-09 23:59 | disposition home or self-care (01) | LOC: LAB.WCP 08:00 | PROVIDERS: ATTEND Physician Assistant Medical | DX: Z79.01 Long term (current) use of anticoagulants (principal) ==

== ENCOUNTER 2020-11-06 08:00 | Outpatient (CLI) | payer MEDICARE | END 2020-11-06 23:59 | disposition home or self-care (01) | LOC: LAB.WCP 08:00 | PROVIDERS: ATTEND Physician Assistant Medical | DX: Z79.01 Long term (current) use of anticoagulants (principal) ==

== ENCOUNTER 2020-12-04 08:00 | Outpatient (CLI) | payer MEDICARE | END 2020-12-04 23:59 | disposition home or self-care (01) | LOC: LAB.N 08:00 | PROVIDERS: ATTEND Physician Assistant Medical | DX: Z79.01 Long term (current) use of anticoagulants (principal); Z86.711 Personal history of pulmonary embolism ==

== ENCOUNTER 2020-12-18 08:00 | Outpatient (CLI) | payer MEDICARE | END 2020-12-18 23:59 | disposition home or self-care (01) | LOC: LAB.N 08:00 | PROVIDERS: ATTEND Physician Assistant Medical | DX: Z86.711 Personal history of pulmonary embolism (principal); Z79.01 Long term (current) use of anticoagulants ==

== ENCOUNTER 2021-01-15 10:03 | Outpatient (CLI) | payer MEDICARE ==
[2021-01-15 12:10] LABS: BASOPHILS # (AUTO) 0.1 10^3/uL (0.0-0.1); BASOPHILS % (AUTO) 1.4 %; EOSINOPHILS # (AUTO) 0.2 10^3/uL (0.0-0.7); EOSINOPHILS % (AUTO) 3.5 %; HCT - HEMATOCRIT 40.8 % (37.0-47.0); HGB - HEMOGLOBIN 13.4 g/dL (12.0-16.0); LYMPHOCYTES # (AUTO) 1.5 10^3/uL (1.5-3.5); LYMPHOCYTES % (AUTO) 22.1 %; MEAN CORPUSCULAR HEMOGLOBIN 29.5 pg (27.0-31.0); MEAN CORPUSCULAR HGB CONC 32.8 g/dL (32.0-36.0); MEAN CORPUSCULAR VOLUME 89.7 fL (81.0-99.0); MONOCYTES # (AUTO) 0.6 10^3/uL (0.0-1.0); MONOCYTES % (AUTO) 9.1 %; NEUTROPHILS # (AUTO) 4.2 10^3/uL (1.5-6.6); NEUTROPHILS % (AUTO) 63.6 %; PLT - PLATELET COUNT 225 10^3/uL (130-450); RED BLOOD COUNT 4.55 10^6/uL (4.20-5.40); WHITE BLOOD COUNT 6.6 x10^3/uL (4.8-10.8)
[2021-01-15 12:22] LABS: ALBUMIN 4.2 g/dL (3.2-5.5); ALBUMIN/GLOBULIN RATIO 1.6 (1.0-2.2); ALKALINE PHOSPHATASE 87 IU/L (42-121); ALT ALANINE AMINOTRANSFERASE 37 IU/L (10-60); AST ASPARTATE AMINOTRANSFERASE 31 IU/L (10-42); BUN - BLOOD UREA NITROGEN 37 mg/dL (6-20); CALCIUM 9.6 mg/dL (8.5-10.3); CARBON DIOXIDE - CO2 27 mmol/L (21-32); CHLORIDE 106 mmol/L (101-111); CREATININE 1.2 mg/dL (0.4-1.0); GFR - MDRD 44 (>89); GLUCOSE 112 mg/dL (70-100); POTASSIUM 4.7 mmol/L (3.5-5.0); SODIUM 142 mmol/L (135-145); TOTAL PROTEIN 6.8 g/dL (6.7-8.2)
[2021-01-15 12:54] LABS: CRP - C-REACTIVE PROTEIN < 1.0 mg/dL (0-1.0)
== END 2021-01-15 10:04 | disposition home or self-care (01) ==
LOC: LAB.N 10:03
PROVIDERS: ATTEND Internal Medicine Rheumatology
DX: M12.9 Arthropathy, unspecified (principal)
CPT/HCPCS: 36415; 80053; 85025; 85651; 86140

== ENCOUNTER 2021-01-18 09:21 | Outpatient (CLI) | payer MEDICARE ==
--- NOTE | 2021-01-19 09:59 | Mammography Report ---
BILATERAL DIGITAL SCREENING MAMMOGRAM 3D/2D: 01/18/2021 CLINICAL: Routine screening. Comparison is made to exams dated: 12/03/2019 mammogram, 07/11/2017 mammogram, and 12/28/2015 mammogram - [facility]. There are scattered fibroglandular elements in both breasts. No significant masses, calcifications, or other findings are seen in either breast. There has been no significant interval change. IMPRESSION: NEGATIVE There is no mammographic evidence of malignancy. A 1 year screening mammogram is recommended. This exam was interpreted at Station ID: [id number]. NOTE: For mammograms, a report in lay terms will be sent to the patient. Approximately 15% of breast malignancies will not be visualized mammographically. In the management of a palpable breast mass, a negative mammogram must not discourage biopsy of a clinically suspicious lesion. Electronically Signed By: Luis Denise M.D. ar/triciarad:01/18/2021 09:54:58 ACR BI-RADS Category 1: Negative 3341F PARENCHYMAL PATTERN: (A) - The breast(s) demonstrate(s) scattered fibroglandular densities. BI-RADS CATEGORY: (1) - 1 RECOMMENDATION: (ANNUAL) - Recommend routine annual screening mammography. [id number] 1 year screening LATERALITY: (B)
== END 2021-01-18 09:22 | disposition home or self-care (01) ==
LOC: DI.N 09:21
DX: Z12.31 Encounter for screening mammogram for malignant neoplasm of breast (principal)

== ENCOUNTER 2021-02-12 10:05 | Outpatient (CLI) | payer MEDICARE ==
[2021-02-12 11:44] LABS: CALCIUM 9.4 mg/dL (8.5-10.3); CREATININE 1.1 mg/dL (0.4-1.0); POTASSIUM 4.9 mmol/L (3.5-5.0)
== END 2021-02-12 10:06 | disposition home or self-care (01) ==
LOC: LAB.N 10:05
PROVIDERS: ATTEND Internal Medicine Rheumatology
DX: N18.30 Chronic kidney disease, stage 3 unspecified (principal)
CPT/HCPCS: 36415; 80048

== ENCOUNTER 2021-03-03 07:35 | Outpatient (CLI) | payer MEDICARE ==
[2021-03-03 12:53] LABS: ALBUMIN 4.3 g/dL (3.2-5.5); ALBUMIN/GLOBULIN RATIO 1.7 (1.0-2.2); ALKALINE PHOSPHATASE 78 IU/L (42-121); ALT ALANINE AMINOTRANSFERASE 35 IU/L (10-60); AST ASPARTATE AMINOTRANSFERASE 32 IU/L (10-42); BUN - BLOOD UREA NITROGEN 36 mg/dL (6-20); CALCIUM 9.5 mg/dL (8.5-10.3); CARBON DIOXIDE - CO2 29 mmol/L (21-32); CHLORIDE 103 mmol/L (101-111); CHOL/HDL RATIO 2.5 (<4.4); CHOLESTEROL 165 mg/dL; CREATININE 1.2 mg/dL (0.4-1.0); GFR - MDRD 44 (>89); GLUCOSE 95 mg/dL (70-100); HDL CHOLESTEROL 67 mg/dL; LDL CHOLESTEROL,CALCULATED 88 mg/dL; LDL/HDL RATIO 1.3 (<4.4); POTASSIUM 4.8 mmol/L (3.5-5.0); SODIUM 140 mmol/L (135-145); TOTAL PROTEIN 6.9 g/dL (6.7-8.2); TRIGLYCERIDES 50 mg/dL; VLDL CHOLESTEROL 10 mg/dL
[2021-03-03 13:03] LABS: THYROID STIMULATING HORMONE 0.47 uIU/mL (0.34-5.60)
== END 2021-03-03 07:36 | disposition home or self-care (01) ==
LOC: LAB.N 07:35
PROVIDERS: ATTEND Physician Assistant Medical
DX: E78.5 Hyperlipidemia, unspecified (principal); E03.9 Hypothyroidism, unspecified
CPT/HCPCS: 36415; 80053; 80061; 83721; 84443

== ENCOUNTER 2021-03-10 08:00 | Outpatient (CLI) | payer MEDICARE | END 2021-03-10 23:59 | disposition home or self-care (01) | LOC: LAB.N 08:00 | PROVIDERS: ATTEND Physician Assistant Medical | DX: I80.209 Phlebitis and thrombophlebitis of unspecified deep vessels of unspecified lower extremity (principal); Z79.01 Long term (current) use of anticoagulants; Z86.711 Personal history of pulmonary embolism ==

== ENCOUNTER 2021-03-24 08:00 | Outpatient (CLI) | payer MEDICARE | END 2021-03-24 23:59 | disposition home or self-care (01) | LOC: LAB.F 08:00 | PROVIDERS: ATTEND Physician Assistant Medical | DX: Z79.01 Long term (current) use of anticoagulants (principal); Z86.711 Personal history of pulmonary embolism; I80.209 Phlebitis and thrombophlebitis of unspecified deep vessels of unspecified lower extremity ==

== ENCOUNTER 2021-03-31 08:00 | Outpatient (CLI) | payer MEDICARE | END 2021-03-31 23:59 | disposition home or self-care (01) | LOC: LAB.N 08:00 | PROVIDERS: ATTEND Physician Assistant Medical | DX: Z79.01 Long term (current) use of anticoagulants (principal); Z86.711 Personal history of pulmonary embolism ==

== ENCOUNTER 2021-04-14 08:00 | Outpatient (CLI) | payer MEDICARE | END 2021-04-14 23:59 | disposition home or self-care (01) | LOC: LAB.N 08:00 | PROVIDERS: ATTEND Physician Assistant Medical | DX: I80.209 Phlebitis and thrombophlebitis of unspecified deep vessels of unspecified lower extremity (principal); Z79.01 Long term (current) use of anticoagulants; Z86.711 Personal history of pulmonary embolism ==

== ENCOUNTER 2021-04-21 08:00 | Outpatient (CLI) | payer MEDICARE | END 2021-04-21 23:59 | disposition home or self-care (01) | LOC: LAB.N 08:00 | PROVIDERS: ATTEND Physician Assistant Medical | DX: I80.209 Phlebitis and thrombophlebitis of unspecified deep vessels of unspecified lower extremity (principal); Z79.01 Long term (current) use of anticoagulants; Z86.711 Personal history of pulmonary embolism ==

== ENCOUNTER 2021-04-28 08:00 | Outpatient (CLI) | payer MEDICARE | END 2021-04-28 23:59 | disposition home or self-care (01) | LOC: LAB.N 08:00 | PROVIDERS: ATTEND Physician Assistant Medical | DX: I80.209 Phlebitis and thrombophlebitis of unspecified deep vessels of unspecified lower extremity (principal); Z79.01 Long term (current) use of anticoagulants; Z86.711 Personal history of pulmonary embolism ==

== ENCOUNTER 2021-05-12 08:00 | Outpatient (CLI) | payer MEDICARE | END 2021-05-12 23:59 | disposition home or self-care (01) | LOC: LAB.N 08:00 | PROVIDERS: ATTEND Physician Assistant Medical | DX: I80.209 Phlebitis and thrombophlebitis of unspecified deep vessels of unspecified lower extremity (principal); Z79.01 Long term (current) use of anticoagulants; Z86.711 Personal history of pulmonary embolism ==

== ENCOUNTER 2021-06-16 08:00 | Outpatient (CLI) | payer MEDICARE | END 2021-06-16 23:59 | disposition home or self-care (01) | LOC: LAB.WCP 08:00 | PROVIDERS: ATTEND Physician Assistant Medical | DX: I80.209 Phlebitis and thrombophlebitis of unspecified deep vessels of unspecified lower extremity (principal); Z79.01 Long term (current) use of anticoagulants; Z86.711 Personal history of pulmonary embolism ==

== ENCOUNTER 2021-07-14 08:00 | Outpatient (CLI) | payer MEDICARE | END 2021-07-14 23:59 | disposition home or self-care (01) | LOC: LAB.N 08:00 | PROVIDERS: ATTEND Physician Assistant Medical | DX: Z79.01 Long term (current) use of anticoagulants (principal); Z86.711 Personal history of pulmonary embolism; I80.209 Phlebitis and thrombophlebitis of unspecified deep vessels of unspecified lower extremity ==

== ENCOUNTER 2021-08-05 09:43 | Outpatient (CLI) | payer MEDICARE ==
[2021-08-05 11:59] LABS: BASOPHILS # (AUTO) 0.1 10^3/uL (0.0-0.1); BASOPHILS % (AUTO) 1.2 %; EOSINOPHILS # (AUTO) 0.6 10^3/uL (0.0-0.7); EOSINOPHILS % (AUTO) 6.6 %; HCT - HEMATOCRIT 43.1 % (37.0-47.0); HGB - HEMOGLOBIN 13.9 g/dL (12.0-16.0); LYMPHOCYTES # (AUTO) 1.8 10^3/uL (1.5-3.5); LYMPHOCYTES % (AUTO) 20.3 %; MEAN CORPUSCULAR HGB CONC 32.3 g/dL (32.0-36.0); MEAN PLATELET VOLUME 12.4 fL (7.9-10.8); MONOCYTES # (AUTO) 1.1 10^3/uL (0.0-1.0); MONOCYTES % (AUTO) 13.2 %; NEUTROPHILS # (AUTO) 5.1 10^3/uL (1.5-6.6); NEUTROPHILS % (AUTO) 58.6 %; PLT - PLATELET COUNT 201 10^3/uL (130-450); RED BLOOD COUNT 4.79 10^6/uL (4.20-5.40); RED CELL DISTRIBUTION WIDTH 14.3 % (12.0-15.0); WHITE BLOOD COUNT 8.6 x10^3/uL (4.8-10.8)
[2021-08-05 13:42] LABS: ALBUMIN 4.3 g/dL (3.2-5.5); ALBUMIN/GLOBULIN RATIO 1.9 (1.0-2.2); ALKALINE PHOSPHATASE 109 IU/L (42-121); ALT ALANINE AMINOTRANSFERASE 73 IU/L (10-60); AST ASPARTATE AMINOTRANSFERASE 46 IU/L (10-42); BILIRUBIN,TOTAL 1.1 mg/dL (0.2-1.0); BUN - BLOOD UREA NITROGEN 32 mg/dL (6-20); CALCIUM 9.4 mg/dL (8.5-10.3); CARBON DIOXIDE - CO2 31 mmol/L (21-32); CHLORIDE 100 mmol/L (101-111); CREATININE 1.1 mg/dL (0.4-1.0); GFR - MDRD 49 (>89); GLUCOSE 92 mg/dL (70-100); PHOSPHORUS 3.4 mg/dL (2.5-4.6); SODIUM 142 mmol/L (135-145); TOTAL PROTEIN 6.6 g/dL (6.7-8.2); URIC ACID 5.5 mg/dL (2.6-7.2)
[2021-08-05 13:54] LABS: CRP - C-REACTIVE PROTEIN < 1.0 mg/dL (0-1.0)
== END 2021-08-05 09:44 | disposition home or self-care (01) ==
LOC: LAB.N 09:43
PROVIDERS: ATTEND Specialist/Technologist Athletic Trainer
DX: N18.32 Chronic kidney disease, stage 3b (principal); M12.9 Arthropathy, unspecified; Z51.81 Encounter for therapeutic drug level monitoring; Z79.899 Other long term (current) drug therapy
CPT/HCPCS: 36415; 80053; 80069; 84550; 85025; 85651; 86140

== ENCOUNTER 2021-08-11 08:00 | Outpatient (CLI) | payer MEDICARE | END 2021-08-11 23:59 | disposition home or self-care (01) | LOC: LAB.WCP 08:00 | PROVIDERS: ATTEND Physician Assistant Medical | DX: Z79.01 Long term (current) use of anticoagulants (principal); Z86.711 Personal history of pulmonary embolism; I80.209 Phlebitis and thrombophlebitis of unspecified deep vessels of unspecified lower extremity ==

== ENCOUNTER 2021-08-20 08:00 | Outpatient (CLI) | payer MEDICARE | END 2021-08-20 23:59 | disposition home or self-care (01) | LOC: LAB.N 08:00 | PROVIDERS: ATTEND Physician Assistant Medical | DX: I80.209 Phlebitis and thrombophlebitis of unspecified deep vessels of unspecified lower extremity (principal); Z79.01 Long term (current) use of anticoagulants; Z86.711 Personal history of pulmonary embolism ==

== ENCOUNTER 2021-09-03 08:00 | Outpatient (CLI) | payer MEDICARE | END 2021-09-03 08:01 | disposition home or self-care (01) | LOC: LAB.N 08:00 | PROVIDERS: ATTEND Physician Assistant Medical | DX: I80.209 Phlebitis and thrombophlebitis of unspecified deep vessels of unspecified lower extremity (principal); Z79.01 Long term (current) use of anticoagulants; Z86.711 Personal history of pulmonary embolism ==

== ENCOUNTER 2021-09-14 08:04 | Outpatient (CLI) | payer MEDICARE ==
[2021-09-14 12:00] LABS: ALBUMIN/GLOBULIN RATIO 1.5 (1.0-2.2); ALKALINE PHOSPHATASE 82 IU/L (42-121); ALT ALANINE AMINOTRANSFERASE 47 IU/L (10-60); AST ASPARTATE AMINOTRANSFERASE 33 IU/L (10-42); BILIRUBIN,TOTAL 1.1 mg/dL (0.2-1.0); BUN - BLOOD UREA NITROGEN 30 mg/dL (6-20); CALCIUM 9.4 mg/dL (8.5-10.3); CARBON DIOXIDE - CO2 29 mmol/L (21-32); CHLORIDE 102 mmol/L (101-111); CHOLESTEROL 169 mg/dL; GFR - MDRD 54 (>89); GLUCOSE 83 mg/dL (70-100); HDL CHOLESTEROL 85 mg/dL; LDL CHOLESTEROL,CALCULATED 71 mg/dL; LDL/HDL RATIO 0.8 (<4.4); POTASSIUM 4.7 mmol/L (3.5-5.0); SODIUM 142 mmol/L (135-145); TOTAL PROTEIN 6.7 g/dL (6.7-8.2); TRIGLYCERIDES 66 mg/dL; VLDL CHOLESTEROL 13 mg/dL
[2021-09-14 12:10] LABS: THYROID STIMULATING HORMONE 0.17 uIU/mL (0.34-5.60)
[2021-09-14 12:44] LABS: FREE T4 (FREE THYROXINE) 1.11 ng/dL (0.58-1.64)
== END 2021-09-14 08:05 | disposition home or self-care (01) ==
LOC: LAB.N 08:04
PROVIDERS: ATTEND Physician Assistant Medical
DX: E78.5 Hyperlipidemia, unspecified (principal); E03.9 Hypothyroidism, unspecified
CPT/HCPCS: 36415; 80053; 80061; 83721; 84439; 84443

== ENCOUNTER 2021-09-17 08:00 | Outpatient (CLI) | payer MEDICARE | END 2021-09-17 23:59 | disposition home or self-care (01) | LOC: LAB.N 08:00 | PROVIDERS: ATTEND Nurse Practitioner Family | DX: I80.209 Phlebitis and thrombophlebitis of unspecified deep vessels of unspecified lower extremity (principal); Z79.01 Long term (current) use of anticoagulants; Z86.711 Personal history of pulmonary embolism ==

== ENCOUNTER 2021-10-08 08:00 | Outpatient (CLI) | payer MEDICARE | END 2021-10-08 23:59 | disposition home or self-care (01) | LOC: LAB.WCP 08:00 | PROVIDERS: ATTEND Nurse Practitioner Family | DX: I80.209 Phlebitis and thrombophlebitis of unspecified deep vessels of unspecified lower extremity (principal); Z79.01 Long term (current) use of anticoagulants; Z86.711 Personal history of pulmonary embolism ==

== ENCOUNTER 2021-10-14 08:37 | Outpatient (CLI) | payer MEDICARE ==
[2021-10-14 12:04] LABS: BASOPHILS # (AUTO) 0.1 10^3/uL (0.0-0.1); BASOPHILS % (AUTO) 1.4 %; EOSINOPHILS # (AUTO) 0.2 10^3/uL (0.0-0.7); HCT - HEMATOCRIT 40.5 % (37.0-47.0); HGB - HEMOGLOBIN 12.7 g/dL (12.0-16.0); LYMPHOCYTES % (AUTO) 25.4 %; MEAN CORPUSCULAR HEMOGLOBIN 29.5 pg (27.0-31.0); MEAN CORPUSCULAR HGB CONC 31.4 g/dL (32.0-36.0); MEAN CORPUSCULAR VOLUME 94.2 fL (81.0-99.0); MEAN PLATELET VOLUME 13.6 fL (7.9-10.8); MONOCYTES % (AUTO) 12.3 %; NEUTROPHILS # (AUTO) 4.6 10^3/uL (1.5-6.6); NEUTROPHILS % (AUTO) 57.5 %; PLT - PLATELET COUNT 179 10^3/uL (130-450); RED CELL DISTRIBUTION WIDTH 15.9 % (12.0-15.0); WHITE BLOOD COUNT 7.9 x10^3/uL (4.8-10.8)
[2021-10-14 12:19] LABS: ALBUMIN 3.9 g/dL (3.2-5.5); ALBUMIN/GLOBULIN RATIO 1.6 (1.0-2.2); ALKALINE PHOSPHATASE 70 IU/L (42-121); ALT ALANINE AMINOTRANSFERASE 46 IU/L (10-60); AST ASPARTATE AMINOTRANSFERASE 30 IU/L (10-42); BILIRUBIN,TOTAL 0.7 mg/dL (0.2-1.0); BUN - BLOOD UREA NITROGEN 26 mg/dL (6-20); CALCIUM 8.9 mg/dL (8.5-10.3); CARBON DIOXIDE - CO2 30 mmol/L (21-32); CHLORIDE 103 mmol/L (101-111); CREATININE 1.1 mg/dL (0.4-1.0); GFR - MDRD 48 (>89); GLUCOSE 119 mg/dL (70-100); POTASSIUM 4.2 mmol/L (3.5-5.0); SODIUM 141 mmol/L (135-145); TOTAL PROTEIN 6.3 g/dL (6.7-8.2)
[2021-10-14 12:21] LABS: CRP - C-REACTIVE PROTEIN < 1.0 mg/dL (0-1.0)
== END 2021-10-14 08:38 | disposition home or self-care (01) ==
LOC: LAB.N 08:37
PROVIDERS: ATTEND Specialist/Technologist Athletic Trainer
DX: M12.9 Arthropathy, unspecified (principal); Z51.81 Encounter for therapeutic drug level monitoring; D84.9 Immunodeficiency, unspecified
CPT/HCPCS: 36415; 80053; 85025; 85651; 86140

== ENCOUNTER 2021-11-05 08:00 | Outpatient (CLI) | payer MEDICARE | END 2021-11-05 23:59 | disposition home or self-care (01) | LOC: LAB.N 08:00 | PROVIDERS: ATTEND Physician Assistant Medical | DX: Z79.01 Long term (current) use of anticoagulants (principal); Z86.711 Personal history of pulmonary embolism; I80.209 Phlebitis and thrombophlebitis of unspecified deep vessels of unspecified lower extremity ==

== ENCOUNTER 2021-12-03 08:00 | Outpatient (CLI) | payer MEDICARE | END 2021-12-03 23:59 | disposition home or self-care (01) | LOC: LAB.WCP 08:00 | PROVIDERS: ATTEND Physician Assistant Medical | DX: I80.209 Phlebitis and thrombophlebitis of unspecified deep vessels of unspecified lower extremity (principal); Z86.711 Personal history of pulmonary embolism; Z79.01 Long term (current) use of anticoagulants ==

== ENCOUNTER 2021-12-08 08:00 | Outpatient (CLI) | payer MEDICARE | END 2021-12-08 23:59 | disposition home or self-care (01) | LOC: LAB.N 08:00 | PROVIDERS: ATTEND Physician Assistant Medical | DX: I80.209 Phlebitis and thrombophlebitis of unspecified deep vessels of unspecified lower extremity (principal); Z79.01 Long term (current) use of anticoagulants; Z86.711 Personal history of pulmonary embolism ==

== ENCOUNTER 2022-01-12 08:00 | Outpatient (CLI) | payer MEDICARE | END 2022-01-12 08:01 | disposition home or self-care (01) | LOC: LAB.N 08:00 | PROVIDERS: ATTEND Physician Assistant Medical | DX: I80.209 Phlebitis and thrombophlebitis of unspecified deep vessels of unspecified lower extremity (principal); Z79.01 Long term (current) use of anticoagulants; Z86.711 Personal history of pulmonary embolism ==

== ENCOUNTER 2022-02-16 08:00 | Outpatient (CLI) | payer MEDICARE | END 2022-02-16 23:59 | disposition home or self-care (01) | LOC: LAB.N 08:00 | PROVIDERS: ATTEND Physician Assistant Medical | DX: I80.209 Phlebitis and thrombophlebitis of unspecified deep vessels of unspecified lower extremity (principal); Z79.01 Long term (current) use of anticoagulants; Z86.711 Personal history of pulmonary embolism ==

== ENCOUNTER 2022-03-22 07:38 | Outpatient (CLI) | payer MEDICARE ==
[2022-03-22 12:41] LABS: ALBUMIN 3.8 g/dL (3.2-5.5); ALBUMIN/GLOBULIN RATIO 1.6 (1.0-2.2); ALKALINE PHOSPHATASE 80 IU/L (42-121); ALT ALANINE AMINOTRANSFERASE 33 IU/L (10-60); AST ASPARTATE AMINOTRANSFERASE 33 IU/L (10-42); BILIRUBIN,TOTAL 0.6 mg/dL (0.2-1.0); BUN - BLOOD UREA NITROGEN 37 mg/dL (6-20); CALCIUM 8.8 mg/dL (8.5-10.3); CARBON DIOXIDE - CO2 31 mmol/L (21-32); CHLORIDE 103 mmol/L (101-111); CHOL/HDL RATIO 2.7 (<4.4); CHOLESTEROL 157 mg/dL; CREATININE 1.2 mg/dL (0.4-1.0); GFR - MDRD 44 (>89); GLUCOSE 86 mg/dL (70-100); HDL CHOLESTEROL 59 mg/dL; LDL CHOLESTEROL,CALCULATED 81 mg/dL; LDL/HDL RATIO 1.4 (<4.4); POTASSIUM 4.4 mmol/L (3.5-5.0); SODIUM 141 mmol/L (135-145); TOTAL PROTEIN 6.2 g/dL (6.7-8.2); TRIGLYCERIDES 83 mg/dL; VLDL CHOLESTEROL 17 mg/dL
== END 2022-03-22 07:39 | disposition home or self-care (01) ==
LOC: LAB.N 07:38
PROVIDERS: ATTEND Physician Assistant Medical
DX: E78.5 Hyperlipidemia, unspecified (principal)
CPT/HCPCS: 36415; 80053; 80061; 83721

== ENCOUNTER 2022-03-31 14:10 | Outpatient (CLI) | payer MEDICARE ==
--- NOTE | 2022-03-31 15:16 | Ultrasound Report ---
PROCEDURE: Duplex Ext Veins Left INDICATIONS: LEG EDEMA TECHNIQUE: Real-time imaging, as well as color and pulse Doppler interrogation, were performed of the lower extr emity deep veins from the inguinal ligament to the popliteal fossa. COMPARISON: None. FINDINGS: The deep veins are normally compressible, and free of intraluminal thrombus. Color and pu lse Doppler demonstrate normal phasic intraluminal flow. There is normal augmentation response to di stal compression maneuver. IMPRESSION: No DVT in the left lower extremity. Reviewed by: Ishaan Mckay on 03/31/2022 3:15 PM PDT Approved by: Ishaan Mckay on 03/31/2022 3:15 PM PDT Station ID: [id number]
== END 2022-03-31 14:11 | disposition home or self-care (01) ==
LOC: DI 14:10
PROVIDERS: ATTEND Physician Assistant Medical
DX: R60.0 Localized edema (principal)

== ENCOUNTER 2022-05-27 08:00 | Outpatient (CLI) | payer MEDICARE | END 2022-05-27 08:01 | disposition home or self-care (01) | LOC: LAB.WCP 08:00 | PROVIDERS: ATTEND Physician Assistant Medical | DX: Z79.01 Long term (current) use of anticoagulants (principal); Z86.711 Personal history of pulmonary embolism; I80.209 Phlebitis and thrombophlebitis of unspecified deep vessels of unspecified lower extremity ==

== ENCOUNTER 2022-06-08 08:00 | Outpatient (CLI) | payer MEDICARE | END 2022-06-08 08:01 | disposition home or self-care (01) | LOC: LAB.N 08:00 | PROVIDERS: ATTEND Physician Assistant Medical | DX: Z79.01 Long term (current) use of anticoagulants (principal); Z86.711 Personal history of pulmonary embolism; I80.209 Phlebitis and thrombophlebitis of unspecified deep vessels of unspecified lower extremity ==

== ENCOUNTER 2022-06-29 08:00 | Outpatient (CLI) | payer MEDICARE | END 2022-06-29 23:59 | disposition home or self-care (01) | LOC: LAB.WCP 08:00 | PROVIDERS: ATTEND Physician Assistant Medical | DX: I80.209 Phlebitis and thrombophlebitis of unspecified deep vessels of unspecified lower extremity (principal); Z79.01 Long term (current) use of anticoagulants; Z86.711 Personal history of pulmonary embolism ==

== ENCOUNTER → 2022-08-10 | Outpatient (CLI) | payer MEDICARE | LOC: LAB.WCP 08:00 | PROVIDERS: ATTEND Physician Assistant Medical | DX: Z79.01 Long term (current) use of anticoagulants (principal); Z86.711 Personal history of pulmonary embolism; I80.209 Phlebitis and thrombophlebitis of unspecified deep vessels of unspecified lower extremity ==

== ENCOUNTER 2022-08-31 08:00 | Outpatient (CLI) | payer MEDICARE | END 2022-08-31 08:01 | disposition home or self-care (01) | LOC: LAB.N 08:00 | PROVIDERS: ATTEND Physician Assistant Medical | DX: Z79.01 Long term (current) use of anticoagulants (principal); Z86.711 Personal history of pulmonary embolism; I80.209 Phlebitis and thrombophlebitis of unspecified deep vessels of unspecified lower extremity ==

== ENCOUNTER 2022-09-13 07:21 | Outpatient (CLI) | payer MEDICARE ==
[2022-09-13 12:14] LABS: BASOPHILS # (AUTO) 0.1 10^3/uL (0.0-0.1); BASOPHILS % (AUTO) 1.5 %; EOSINOPHILS # (AUTO) 0.2 10^3/uL (0.0-0.7); EOSINOPHILS % (AUTO) 2.6 %; HCT - HEMATOCRIT 41.1 % (37.0-47.0); HGB - HEMOGLOBIN 12.7 g/dL (12.0-16.0); LYMPHOCYTES # (AUTO) 1.7 10^3/uL (1.5-3.5); LYMPHOCYTES % (AUTO) 23.5 %; MEAN CORPUSCULAR HEMOGLOBIN 29.2 pg (27.0-31.0); MEAN CORPUSCULAR HGB CONC 30.9 g/dL (32.0-36.0); MEAN CORPUSCULAR VOLUME 94.5 fL (81.0-99.0); MEAN PLATELET VOLUME 13.8 fL (7.9-10.8); MONOCYTES % (AUTO) 13.3 %; NEUTROPHILS # (AUTO) 4.3 10^3/uL (1.5-6.6); NEUTROPHILS % (AUTO) 58.8 %; PLT - PLATELET COUNT 167 10^3/uL (130-450); RED BLOOD COUNT 4.35 10^6/uL (4.20-5.40); RED CELL DISTRIBUTION WIDTH 14.9 % (12.0-15.0); WHITE BLOOD COUNT 7.3 x10^3/uL (4.8-10.8)
[2022-09-13 13:20] LABS: ALBUMIN 3.7 g/dL (3.2-5.5); ALBUMIN/GLOBULIN RATIO 1.4 (1.0-2.2); ALKALINE PHOSPHATASE 82 IU/L (42-121); ALT ALANINE AMINOTRANSFERASE 54 IU/L (10-60); AST ASPARTATE AMINOTRANSFERASE 41 IU/L (10-42); BILIRUBIN,TOTAL 0.7 mg/dL (0.2-1.0); BUN - BLOOD UREA NITROGEN 31 mg/dL (6-20); CALCIUM 9.1 mg/dL (8.5-10.3); CARBON DIOXIDE - CO2 31 mmol/L (21-32); CHLORIDE 105 mmol/L (101-111); CHOL/HDL RATIO 2.4 (<4.4); CHOLESTEROL 141 mg/dL; GFR - MDRD 54 (>89); GLUCOSE 81 mg/dL (70-100); HDL CHOLESTEROL 60 mg/dL; LDL CHOLESTEROL,CALCULATED 68 mg/dL; LDL/HDL RATIO 1.1 (<4.4); POTASSIUM 4.3 mmol/L (3.5-5.0); SODIUM 144 mmol/L (135-145); TOTAL PROTEIN 6.3 g/dL (6.7-8.2); TRIGLYCERIDES 66 mg/dL; VLDL CHOLESTEROL 13 mg/dL
[2022-09-13 13:34] LABS: THYROID STIMULATING HORMONE 1.1 uIU/mL (0.34-5.60)
== END 2022-09-13 07:22 | disposition home or self-care (01) ==
LOC: LAB.N 07:21
PROVIDERS: ATTEND Specialist/Technologist Athletic Trainer
DX: M12.9 Arthropathy, unspecified (principal); I12.9 Hypertensive chronic kidney disease with stage 1 through stage 4 chronic kidney disease, or unspecified chronic kidney disease; N18.32 Chronic kidney disease, stage 3b; E78.5 Hyperlipidemia, unspecified; E03.9 Hypothyroidism, unspecified
CPT/HCPCS: 36415; 80053; 80061; 83721; 84443; 85025

== ENCOUNTER 2022-10-19 08:00 | Outpatient (CLI) | payer MEDICARE | END 2022-10-19 23:59 | disposition home or self-care (01) | LOC: LAB.N 08:00 | PROVIDERS: ATTEND Physician Assistant Medical | DX: Z79.01 Long term (current) use of anticoagulants (principal); Z86.711 Personal history of pulmonary embolism; I80.209 Phlebitis and thrombophlebitis of unspecified deep vessels of unspecified lower extremity ==

== ENCOUNTER 2022-11-23 08:00 | Outpatient (CLI) | payer MEDICARE | END 2022-11-23 23:59 | disposition home or self-care (01) | LOC: LAB.WCP 08:00 | PROVIDERS: ATTEND Family Medicine | DX: Z79.01 Long term (current) use of anticoagulants (principal); I80.209 Phlebitis and thrombophlebitis of unspecified deep vessels of unspecified lower extremity; Z86.711 Personal history of pulmonary embolism ==

== ENCOUNTER 2022-12-21 08:00 | Outpatient (CLI) | payer MEDICARE | END 2022-12-21 23:59 | disposition home or self-care (01) | LOC: LAB.N 08:00 | PROVIDERS: ATTEND Physician Assistant Medical | DX: Z79.01 Long term (current) use of anticoagulants (principal); Z86.711 Personal history of pulmonary embolism; I80.209 Phlebitis and thrombophlebitis of unspecified deep vessels of unspecified lower extremity ==

== ENCOUNTER 2023-01-05 13:02 | Outpatient (CLI) | payer MEDICARE ==
--- NOTE | 2023-01-06 07:07 | XRAY Report ---
PROCEDURE: Shoulder 2 View RT INDICATIONS: right shoulder impingement syndrome TECHNIQUE: 2 views of the shoulder were acquired. COMPARISON: None. FINDINGS: Bones: No fractures or dislocations. No suspicious bony lesions. Visualized ribs appear intact. A cromioclavicular joint space narrowing with associated osteophytosis. Soft tissues: No suspicious soft tissue calcifications. IMPRESSION: No acute bony abnormality. Reviewed by: Rene Lloyd on 01/05/2023 1:37 PM PDT Approved by: Rene Lloyd on 01/05/2023 1:37 PM PDT Station ID: [id number]
== END 2023-01-05 13:03 | disposition home or self-care (01) ==
LOC: DI 13:02
PROVIDERS: ATTEND Physician Assistant Medical
DX: M75.41 Impingement syndrome of right shoulder (principal)

== ENCOUNTER 2023-01-20 08:00 | Outpatient (CLI) | payer MEDICARE | END 2023-01-20 23:59 | disposition home or self-care (01) | LOC: LAB.WCP 08:00 | PROVIDERS: ATTEND Family Medicine | DX: Z79.01 Long term (current) use of anticoagulants (principal); Z86.711 Personal history of pulmonary embolism; I80.209 Phlebitis and thrombophlebitis of unspecified deep vessels of unspecified lower extremity ==

== ENCOUNTER 2023-02-17 08:00 | Outpatient (CLI) | payer MEDICARE | END 2023-02-17 23:59 | disposition home or self-care (01) | LOC: LAB.N 08:00 | PROVIDERS: ATTEND Physician Assistant Medical | DX: Z79.01 Long term (current) use of anticoagulants (principal); Z86.711 Personal history of pulmonary embolism; I80.209 Phlebitis and thrombophlebitis of unspecified deep vessels of unspecified lower extremity ==

== ENCOUNTER 2023-03-30 14:12 | Outpatient (CLI) | payer MEDICARE ==
--- NOTE | 2023-03-31 09:42 | XRAY Report ---
PROCEDURE: Shoulder 3 View RT INDICATIONS: RIGHT SHOULDER PAIN TECHNIQUE: 3 views of the shoulder were acquired. COMPARISON: X-ray right shoulder, 01/05/2023. FINDINGS: Bones: No fractures or dislocations. No suspicious bony lesions. Moderate acromioclavicular and gl enohumeral joint degeneration. Visualized ribs appear intact. Soft tissues: Indeterminate osseous densities in the right axilla, probably calcified lymph node. IMPRESSION: 1. Moderate degenerative joint disease. If clinical symptoms persist, consider MRI for further evalua tion. Reviewed by: Lee Ann Newsome MD on 03/31/2023 9:41 AM PDT Approved by: Lee Ann Newsome MD on 03/31/2023 9:41 AM PDT Station ID: [id number]
== END 2023-03-30 14:13 | disposition home or self-care (01) ==
LOC: DI 14:12
PROVIDERS: ATTEND Physical Medicine & Rehabilitation
DX: M19.011 Primary osteoarthritis, right shoulder (principal)

== ENCOUNTER 2023-04-08 12:45 | Outpatient (CLI) | payer MEDICARE ==
--- NOTE | 2023-04-08 21:17 | Ultrasound Report ---
PROCEDURE: Duplex Ext Veins Left INDICATIONS: LLE HEMATOMA, RUE HEMATOMA TECHNIQUE: Real-time imaging, as well as color and pulse Doppler interrogation, were performed of the lower extr emity deep veins from the inguinal ligament to the popliteal fossa. COMPARISON: None. FINDINGS: In the area of concern in the left leg no hematoma or soft tissue abnormality was identified. In the area of concern in the left leg no thrombus is seen within the underlying distal superficial femoral vein. In the area of concern in the right forearm no images were obtained. The patient stated the symptoms had dissipated. IMPRESSION: No venous thrombus is identified. No hematoma. Reviewed by: Ishaan Mckay on 04/08/2023 8:16 PM [facility] Approved by: Ishaan Mckay on 04/08/2023 8:16 PM [facility] Station ID: [id number]
--- NOTE | 2023-04-08 21:19 | Ultrasound Report ---
PROCEDURE: Duplex Ext Veins Right INDICATIONS: LLE HEMATOMA, RUE HEMATOMA TECHNIQUE: Real-time imaging, as well as color and pulse Doppler interrogation, were performed of the lower extr emity deep veins from the inguinal ligament to the popliteal fossa. COMPARISON: None. FINDINGS: In the area of concern of the right forearm. No hematoma is identified. A patent compressible vein is noted. IMPRESSION: No hematoma or thrombosed vein. Reviewed by: Ishaan Mckay on 04/08/2023 8:18 PM [facility] Approved by: Ishaan Mckay on 04/08/2023 8:18 PM [place] Station ID: [id number]
== END 2023-04-08 12:46 | disposition home or self-care (01) ==
LOC: DI 12:45
PROVIDERS: ATTEND Physician Assistant Medical
DX: M79.81 Nontraumatic hematoma of soft tissue (principal)

== ENCOUNTER 2023-04-28 08:00 | Outpatient (CLI) | payer MEDICARE | END 2023-04-28 23:59 | disposition home or self-care (01) | LOC: LAB.WCP 08:00 | PROVIDERS: ATTEND Family Medicine | DX: Z79.01 Long term (current) use of anticoagulants (principal); Z86.711 Personal history of pulmonary embolism; I80.209 Phlebitis and thrombophlebitis of unspecified deep vessels of unspecified lower extremity ==

== ENCOUNTER 2023-05-29 08:00 | Outpatient (CLI) | payer MEDICARE | END 2023-05-29 23:59 | disposition home or self-care (01) | LOC: LAB.N 08:00 | PROVIDERS: ATTEND Physician Assistant Medical | DX: Z79.01 Long term (current) use of anticoagulants (principal); Z86.711 Personal history of pulmonary embolism; I80.209 Phlebitis and thrombophlebitis of unspecified deep vessels of unspecified lower extremity ==

== ENCOUNTER 2023-07-06 14:46 | Outpatient (CLI) | payer MEDICARE | END 2023-07-06 14:47 | disposition home or self-care (01) | LOC: DI 14:46 | PROVIDERS: ATTEND Physician Assistant Medical | DX: I08.0 Rheumatic disorders of both mitral and aortic valves (principal); R60.0 Localized edema | CPT/HCPCS: 93306 ==

== ENCOUNTER 2023-07-19 08:00 | Outpatient (CLI) | payer MEDICARE | END 2023-07-19 23:59 | disposition home or self-care (01) | LOC: LAB.N 08:00 | PROVIDERS: ATTEND Physician Assistant Medical | DX: Z79.01 Long term (current) use of anticoagulants (principal); Z86.711 Personal history of pulmonary embolism; I80.209 Phlebitis and thrombophlebitis of unspecified deep vessels of unspecified lower extremity ==

== ENCOUNTER 2023-07-26 08:00 | Outpatient (CLI) | payer MEDICARE | END 2023-07-26 23:59 | disposition home or self-care (01) | LOC: LAB.WCP 08:00 | PROVIDERS: ATTEND Physician Assistant Medical | DX: I80.9 Phlebitis and thrombophlebitis of unspecified site (principal); Z79.01 Long term (current) use of anticoagulants; Z86.711 Personal history of pulmonary embolism; I80.209 Phlebitis and thrombophlebitis of unspecified deep vessels of unspecified lower extremity ==

== ENCOUNTER 2023-09-13 08:00 | Outpatient (CLI) | payer MEDICARE | END 2023-09-13 08:01 | disposition home or self-care (01) | LOC: LAB.N 08:00 | PROVIDERS: ATTEND Physician Assistant Medical | DX: I80.209 Phlebitis and thrombophlebitis of unspecified deep vessels of unspecified lower extremity (principal); Z79.01 Long term (current) use of anticoagulants; Z86.711 Personal history of pulmonary embolism ==

== ENCOUNTER 2023-10-03 13:20 | Outpatient (CLI) | payer MEDICARE ==
--- NOTE | 2023-10-04 16:48 | Mammography Report ---
BILATERAL DIGITAL SCREENING MAMMOGRAM 3D/2D: 10/03/2023 CLINICAL: Routine screening. Comparison is made to exams dated: 01/18/2021 mammogram, 12/03/2019 mammogram, 07/11/2017 mammogram, mammogram, and 10/06/2014 mammogram - [facility]. There are scattered areas of fibroglandular density in both breasts (category b / 25%-50% glandular t issue). No significant masses, calcifications, or other findings are seen in either breast. There has been no significant interval change. IMPRESSION: NEGATIVE There is no mammographic evidence of malignancy. A 1 year screening mammogram is recommended. Based on the Tyrer Cuzick model (a risk assessment model) the patients lifetime risk is 3.9% and her 10 year risk is 0.0%. According to the ACR, ACS, and NCCN guidelines, an annual breast MRI exam gabrielle g with mammogram is recommended if the patients lifetime risk is 20% or greater. This exam was interpreted at Station ID: [id number]. NOTE: For mammograms, a report in lay terms will be sent to the patient. Approximately 15% of breast malignancies will not be visualized mammographically. In the management of a palpable breast mass, a negative mammogram must not discourage biopsy of a clinically suspicious lesion. Electronically Signed By: Chino cheng/roland:10/03/2023 16:12:01 letter sent: No_Letter ACR BI-RADS Category 1: Negative 3341F PARENCHYMAL PATTERN: (A) - The breast(s) demonstrate(s) scattered fibroglandular densities. BI-RADS CATEGORY: (1) - 1 Mammogram [id number] 1 year screening LATERALITY: (B)
== END 2023-10-03 13:21 | disposition home or self-care (01) ==
LOC: DI 13:20
DX: Z12.31 Encounter for screening mammogram for malignant neoplasm of breast (principal); R92.323 Mammographic fibroglandular density, bilateral breasts

== ENCOUNTER → 2023-11-08 | Outpatient (CLI) | payer MEDICARE | LOC: LAB.WCP 08:00 | PROVIDERS: ATTEND Physician Assistant Medical | DX: I80.209 Phlebitis and thrombophlebitis of unspecified deep vessels of unspecified lower extremity (principal); Z79.01 Long term (current) use of anticoagulants; Z86.711 Personal history of pulmonary embolism ==

== ENCOUNTER → 2023-11-20 | Outpatient (CLI) | payer MEDICARE | LOC: LAB.WCP 08:00 | PROVIDERS: ATTEND Physician Assistant Medical | DX: I80.209 Phlebitis and thrombophlebitis of unspecified deep vessels of unspecified lower extremity (principal); Z79.01 Long term (current) use of anticoagulants; Z86.711 Personal history of pulmonary embolism ==

== ENCOUNTER → 2023-11-24 | Outpatient (CLI) | payer MEDICARE | LOC: LAB.WCP 08:00 | PROVIDERS: ATTEND Physician Assistant Medical | DX: I80.209 Phlebitis and thrombophlebitis of unspecified deep vessels of unspecified lower extremity (principal); Z79.01 Long term (current) use of anticoagulants; Z86.711 Personal history of pulmonary embolism ==

== ENCOUNTER → 2023-12-08 | Outpatient (CLI) | payer MEDICARE | LOC: LAB.WCP 08:00 | PROVIDERS: ATTEND Physician Assistant Medical | DX: I80.209 Phlebitis and thrombophlebitis of unspecified deep vessels of unspecified lower extremity (principal); Z79.01 Long term (current) use of anticoagulants; Z86.711 Personal history of pulmonary embolism ==

== ENCOUNTER → 2024-01-05 | Outpatient (CLI) | payer MEDICARE | LOC: LAB.WCP 08:00 | PROVIDERS: ATTEND Physician Assistant Medical | DX: I80.9 Phlebitis and thrombophlebitis of unspecified site (principal); Z79.01 Long term (current) use of anticoagulants; Z86.711 Personal history of pulmonary embolism; I80.209 Phlebitis and thrombophlebitis of unspecified deep vessels of unspecified lower extremity ==

== ENCOUNTER → 2024-02-02 | Outpatient (CLI) | payer MEDICARE | LOC: LAB.WCP 08:00 | PROVIDERS: ATTEND Physician Assistant Medical | DX: Z79.01 Long term (current) use of anticoagulants (principal); Z86.711 Personal history of pulmonary embolism; I80.209 Phlebitis and thrombophlebitis of unspecified deep vessels of unspecified lower extremity ==

== ENCOUNTER 2024-04-01 08:00 | Outpatient (CLI) | payer MEDICARE | END 2024-04-01 23:59 | disposition home or self-care (01) | LOC: LAB.WCP 08:00 | PROVIDERS: ATTEND Physician Assistant Medical | DX: I80.209 Phlebitis and thrombophlebitis of unspecified deep vessels of unspecified lower extremity (principal); Z86.711 Personal history of pulmonary embolism; Z79.01 Long term (current) use of anticoagulants ==

== ENCOUNTER 2024-04-08 08:00 | Outpatient (CLI) | payer MEDICARE | END 2024-04-08 23:59 | disposition home or self-care (01) | LOC: LAB.WCP 08:00 | PROVIDERS: ATTEND Physician Assistant Medical | DX: I80.209 Phlebitis and thrombophlebitis of unspecified deep vessels of unspecified lower extremity (principal); Z79.01 Long term (current) use of anticoagulants; Z86.711 Personal history of pulmonary embolism ==

== ENCOUNTER 2024-04-16 09:18 | Outpatient (CLI) | payer MEDICARE, OTHER | END 2024-04-16 23:59 | disposition short-term general hospital (02) | LOC: EMS 09:18 | DX: Z04.1 Encounter for examination and observation following transport accident (principal); F13.929 Sedative, hypnotic or anxiolytic use, unspecified with intoxication, unspecified | CPT/HCPCS: A0425; A0429 ==

== ENCOUNTER 2024-05-01 08:00 | Outpatient (CLI) | payer MEDICARE | END 2024-05-01 23:59 | disposition home or self-care (01) | LOC: LAB.WCP 08:00 | PROVIDERS: ATTEND Physician Assistant Medical | DX: Z79.01 Long term (current) use of anticoagulants (principal); Z86.711 Personal history of pulmonary embolism; I80.209 Phlebitis and thrombophlebitis of unspecified deep vessels of unspecified lower extremity ==

== ENCOUNTER 2024-05-08 08:00 | Outpatient (CLI) | payer MEDICARE | END 2024-05-08 23:59 | disposition home or self-care (01) | LOC: LAB.WCP 08:00 | PROVIDERS: ATTEND Physician Assistant Medical | DX: Z79.01 Long term (current) use of anticoagulants (principal); Z86.711 Personal history of pulmonary embolism; I80.209 Phlebitis and thrombophlebitis of unspecified deep vessels of unspecified lower extremity ==

== ENCOUNTER 2024-06-05 08:00 | Outpatient (CLI) | payer MEDICARE | END 2024-06-05 23:59 | disposition home or self-care (01) | LOC: LAB.WCP 08:00 | PROVIDERS: ATTEND Physician Assistant Medical | DX: I80.209 Phlebitis and thrombophlebitis of unspecified deep vessels of unspecified lower extremity (principal); Z79.01 Long term (current) use of anticoagulants; Z86.711 Personal history of pulmonary embolism ==

== ENCOUNTER 2024-11-01 14:51 | Inpatient (IN) ==
[2024-11-01 15:50] LABS: BASOPHILS # (AUTO) 0.1 10^3/uL (0.0-0.1); BASOPHILS % (AUTO) 0.6 %; EOSINOPHILS # (AUTO) 0.2 10^3/uL (0.0-0.7); EOSINOPHILS % (AUTO) 1.7 %; HGB - HEMOGLOBIN 10.4 g/dL (12.0-16.0); LYMPHOCYTES # (AUTO) 1.1 10^3/uL (1.5-3.5); LYMPHOCYTES % (AUTO) 9.2 %; MEAN CORPUSCULAR HEMOGLOBIN 30.3 pg (27.0-31.0); MEAN CORPUSCULAR HGB CONC 31.5 g/dL (32.0-36.0); MEAN CORPUSCULAR VOLUME 96.2 fL (81.0-99.0); MEAN PLATELET VOLUME 12.3 fL (7.9-10.8); MONOCYTES # (AUTO) 1.3 10^3/uL (0.0-1.0); MONOCYTES % (AUTO) 11.4 %; NEUTROPHILS # (AUTO) 8.9 10^3/uL (1.5-6.6); NEUTROPHILS % (AUTO) 76.8 %; PLT - PLATELET COUNT 174 10^3/uL (130-450); RED BLOOD COUNT 3.43 10^6/uL (4.20-5.40); RED CELL DISTRIBUTION WIDTH 15.7 % (12.0-15.0); WHITE BLOOD COUNT 11.5 x10^3/uL (4.8-10.8)
[2024-11-01 15:59] LABS: INR 1.3 (0.8-1.2)
[2024-11-01 16:19] LABS: ALBUMIN 3.5 g/dL (3.2-5.5); ALBUMIN/GLOBULIN RATIO 1.4 (1.0-2.2); BILIRUBIN,TOTAL 0.7 mg/dL (0.2-1.0); CALCIUM 8.8 mg/dL (8.5-10.3); CREATININE 2.7 mg/dL (0.6-1.3); POTASSIUM 6.4 mmol/L (3.5-4.5)
--- NOTE | 2024-11-01 16:28 | ED Physician Documentation ---
History of Present Illness Stated complaint Stated Complaint: WEAK,UNWELL Chief complaint Chief Complaint: General Additonal information Additional information: 79-year-old woman presents with her for weakness. She was seen by me a little over a week ago, she was dehydrated and had some YAMILKA. She received some IV fluids and was feeling much better. Since then she has been trying to drink more water. She was supratherapeutic then on her INR (she had a remote PE) and was switched over to Eliquis. 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 She says with the increased liquid intake she was doing much better until today and she sort of melted into the floor and collapsed but without syncope. There was no injury. Her legs been hurting on and off for the pyoderma as. She denies fevers or chills. Meds/Allgy Home Medications Ambulatory Orders Medication Instructions Recorded Confirmed lisinopril 20 mg tablet 40 mg PO DAILY 07/11/13 10/30/24 lovastatin 40 mg tablet (Mevacor) 40 mg ORAL DAILY 07/11/13 10/30/24 cholecalciferol (vitamin D3) 10 400 unit PO 10/17/13 10/30/24 mcg (400 unit) capsule (Vitamin D3) fluticasone propionate 250 50 mcg IH 10/17/13 10/30/24 mcg/actuation blister powder for inhalation (Flovent Diskus) multivitamin 1 ea PO 10/17/13 10/30/24 warfarin 3 mg tablet 1.5 - 3 mg PO QPM 08/07/24 10/30/24 carvedilol 25 mg tablet 25 mg PO BID 08/08/24 10/30/24 gabapentin 300 mg capsule 300 mg PO QDAY 08/08/24 10/30/24 levothyroxine 88 mcg tablet 88 mcg PO QDAY 08/08/24 10/30/24 alendronate 70 mg tablet See Rx Instructions .Route 08/26/24 10/30/24 .COMPLEX #13 tabs spironolactone 25 mg tablet 25 mg PO QDAY #90 tabs 09/02/24 10/30/24 oxycodone-acetaminophen 5 mg-325 1 tab PO Q6H #60 tabs 10/27/24 10/30/24 mg tablet (Percocet) apixaban 5 mg tablet (Eliquis) 5 mg PO BID #60 tabs 10/30/24 10/30/24 Allergies Allergies Allergy/AdvReac Type Severity Reaction Status Date / Time ketoconazole Allergy Unknown Verified 11/01/24 15:15 latex Allergy Rash Verified 11/01/24 15:15 PFSH Social History Social History Smoking Status: Never smoker If you are a former smoker, when did you quit? (Date/Year): NO Second hand tobacco smoke exposure: No Do you dip or chew tobacco?: No Do you vape?: No Living arrangement: At home Marital Status: Living Condition: With spouse/s.o. 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 Neurology GCS 15 Results Vitals Vitals: Vital Signs - 24 hr 11/01/24 15:09 11/01/24 15:37 11/01/24 17:04 Temperature 36.1 C L 36.9 C Temperature Source Temporal Artery Scan Temporal Artery Scan Pulse Rate 57 L 56 L Respiratory Rate 20 16 Blood Pressure 125/94 H 124/31 L O2 Saturation 97 97 O2 Source Room air Room air Pain Intensity 9 0 10 11/01/24 17:26 11/01/24 17:51 Temperature Temperature Source Pulse Rate 58 L Respiratory Rate 16 Blood Pressure 127/60 O2 Saturation 98 O2 Source Room air Pain Intensity 0 0 Oxygen O2 Source Room air EKG (time done) 1807: EKG releavant findings:: EKG personally interpreted by author of this note. Relevant findings are: Normal sinus rhythm with rate of 59. Borderline left axis deviation. No ST elevation or depression. Apropos to the clinical circumstances I do not see any evidence of hyperkalemia (i.e. no peaked T waves, wide QRS or long QT.). Labs Labs: Laboratory Tests 11/01/24 11/01/24 11/01/24 15:45 16:37 18:09 WBC 11.5 H RBC 3.43 L Hgb 10.4 L Hct 33.0 L MCV 96.2 MCH 30.3 MCHC 31.5 L RDW 15.7 H Plt Count 174 MPV 12.3 H Neut # (Auto) 8.9 H Lymph # (Auto) 1.1 L Hinds # (Auto) 1.3 H Eos # (Auto) 0.2 Baso # (Auto) 0.1 Absolute Nucleated RBC 0.00 Nucleated RBC % 0.0 PT 14.0 H INR 1.3 H Sodium 132 L 134 L Potassium 6.4 H* 4.6 H Chloride 99 L 105 Carbon Dioxide 27 24 Anion Gap 6.0 5.0 L BUN 46 H 40 H Creatinine 2.7 H 2.2 H Estimated GFR (MDRD) 17 L 22 L Glucose 96 46 L* Lactic Acid 1.6 Calcium 8.8 7.5 L Total Bilirubin 0.7 AST 168 H ALT 52 Alkaline Phosphatase 68 Total Protein 6.0 L Albumin 3.5 Globulin 2.5 Albumin/Globulin Ratio 1.4 PD Medical Decision Making ED course ED course: 79-year-old woman presents after near syncopal episode. 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 Workup demonstrates worsening YAMILKA with hyperkalemia. She was treated for the hyperkalemia with Lokelma, insulin, glucose, and 2 L of fluid. On recheck her potassium was much better at 4.6 but she was hypoglycemic and administered D50. CT of the leg was done to rule out NSTI and was negative for same. She was cultured up and I gave her Cipro. She did need some pain medication. Given the above we will place her in observation for monitoring of her renal function, potassium, and blood sugar. Spoke with KENDELL Nichols for same at 7:10 PM. the patient and family are counseled as to the diagnosis and need for admission. This document was made in part using voice recognition software, while efforts are made to proofread this document, sound alike an grammatical errors may occur. Critical Care Time(min): 40 Time Includes: Direct patient care, Review records, Reassess patient, Document care, Coordinate care, Medical consult and Family consult for tx dec Procedures included in critical care time: Peripheral IV Procedures excluded from critical care time: EKG Discharge Plan Discharge Patient Disposition: ED Place in Observation Condition: Serious Clinical Impression: Acute kidney injury, Cellulitis of left leg, Acute hyperkalemia Prescriptions: No Action alendronate 70 mg tablet See Rx Instructions .ROUTE .COMPLEX Qty: 13 3RF Dose Instruction: Take 1 tablet by mouth once a week Rx Instructions: Take 1 tablet by mouth once a week lovastatin [Mevacor] 40 MG tablet 40 mg ORAL DAILY lisinopril 20 MG tablet 40 mg PO DAILY fluticasone propionate [Flovent Diskus] 250 MCG blister with device 50 mcg IH multivitamin 1 EACH capsule 1 ea PO cholecalciferol (vitamin D3) [Vitamin D3] 400 UNIT capsule 400 unit PO spironolactone 25 mg tablet 25 mg PO QDAY Qty: 90 3RF Rx Instructions: for blood pressure warfarin 3 mg tablet 1.5 - 3 mg PO QPM Protocol: Dose Management Condition: Monday Dose/Route: 1.5 mg Instruction: 0.5 x 3 mg tablets Condition: Monday Dose/Route: 0 mg Instruction: 0 tablets Condition: Monday Dose/Route: 1.5 mg Instruction: 0.5 x 3 mg tablets Condition: Monday Dose/Route: 0 mg Instruction: 0 tablets Condition: Dose/Route: 0 mg Instruction: 0 tablets Condition: Monday Dose/Route: 1.5 mg Instruction: 0.5 x 3 mg tablets Condition: Monday Dose/Route: 1.5 mg Instruction: 0.5 x 3 mg tablets Protocol Text: Adjustment Start Date: Monday10/25/24 INR Value: 1.9 INR Date: 10/25/24 Recheck Date: 10/30/24 Rx Instructions: as directed based on INR oxycodone-acetaminophen [Percocet] 5-325 mg tablet 1 tab PO Q6H Qty: 60 0RF Rx Instructions: Take 1-2 every 6 hours as needed for pain levothyroxine 88 mcg tablet 88 mcg PO QDAY Rx Instructions: Take 1 tablet (0.088 mg) by mouth every morning away from food and other medications gabapentin 300 mg capsule 300 mg PO QDAY carvedilol 25 mg tablet 25 mg PO BID Rx Instructions: Take 1 tablet by mouth twice a day Eliquis 5 mg tablet 5 mg PO BID Qty: 60 3RF Rx Instructions: for blood thinner, replaces warfarin Print Language: Tajik Stand Alone Forms: PCP List
[2024-11-01] MEDS: SODIUM CHLORIDE 0.9% 1,000 ML IV STA ×2 (16:47→17:04)
[2024-11-01] MEDS: SODIUM ZIRCONIUM CYCLOSILICATE 5 GM PACKET PO STA (16:47)
[2024-11-01] MEDS: INSULIN REGULAR, HUMAN 300 UNIT/3 ML PEN IVP STA (16:51)
[2024-11-01] MEDS: DEXTROSE 50% ABBOJECT 25 GM/50 ML SYRINGE IVP STA ×2 (16:51→19:01)
[2024-11-01] MEDS: HYDROmorphone 0.5 MG/0.5 ML SYRINGE IVP STA (17:04)
--- NOTE | 2024-11-01 18:53 | CT Report ---
PROCEDURE: CT Lower Extremity LT WO INDICATIONS: infection miedial left thigh, eval for nsti TECHNIQUE: Noncontrast 3-mm axial sections acquired from the above the hip to just above the knee, with coronal and sagittal reformats. For radiation dose reduction, the following was used: automated exposure co ntrol, adjustment of mA and/or kV according to patient size. COMPARISON: None. FINDINGS: Image quality: Excellent. Bones: No osteomyelitis. No acute fracture or dislocation. Soft tissues: There is a prominent medial thigh ulcer. There is no spread of significant subcutaneou s gas from the ulcer location. There is no subcutaneous abscess. No myositis is identified. There is very minimal cellulitic change. No osteomyelitis. Impression: 1. Large medial thigh ulcer with only minimal cellulitic change and no evidence of necrotizing fascii tis or myositis or osteomyelitis. Reviewed by: Obie Sanchez MD on 11/01/2024 6:52 PM PST Approved by: Obie Sanchez MD on 11/01/2024 6:52 PM PST Station ID: [id number]
[2024-11-01 18:56] LABS: CALCIUM 7.5 mg/dL (8.5-10.3); CREATININE 2.2 mg/dL (0.6-1.3); POTASSIUM 4.6 mmol/L (3.5-4.5)
[2024-11-01] MEDS ORDERED: DEXTROSE 50% ABBOJECT 25 GM/50 ML SYRINGE ONE (18:58)
[2024-11-01] MEDS: CIPROFLOXACIN 400 MG/200 ML 400 MG/200 ML BAG IV STA (19:33)
--- NOTE | 2024-11-01 19:41 | HISTORY & PHYSICAL EXAMINATION ---
Chief Complaint Chief Complaint Chief Complaint: Weakness History of Present Illness Admitted From Admitted From:: Home History Obtained From History obtained from: Patient, at bedside Exam Limitations: None History of Present Illness HPI Comment/Other: 79-year-old female who has been in the ER before with dehydration and acute kidney injury. 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 She came into the ER today with weakness. She denies fever, chills. States she has been eating and drinking okay. Her says that she has not. Today, she felt increasingly weak and had a fall without syncope and without injury. She reports pain intermittently secondary to her pyoderma. Denies chest pain, dyspnea, urinary or bowel abnormalities. In the ED, lower extremity CT was performed which showed a large medial thigh ulcer with only minimal cellulitic change and no evidence of neck Fash, myositis, osteomyelitis. She was noted to have a potassium of 6.4 and a creatinine of 2.7. Her creatinine was 1.9 when she was here last week. She was treated with Lokelma, D50, insulin. Repeat BMP was performed which showed resolution of her hyperkalemia, but did show a glucose of 46. She received an additional amp of D50 for this. Due to what is potentially sepsis secondary to cellulitis with acute kidney injury, hospitalist was contacted for admission for initiation of IV antibiotics and to workup her kidney failure Meds/Allgy Home Medications Ambulatory Orders Medication Instructions Recorded Confirmed lisinopril 20 mg tablet 40 mg PO DAILY 07/11/13 10/30/24 lovastatin 40 mg tablet (Mevacor) 40 mg ORAL DAILY 07/11/13 10/30/24 cholecalciferol (vitamin D3) 10 400 unit PO 10/17/13 10/30/24 mcg (400 unit) capsule (Vitamin D3) fluticasone propionate 250 50 mcg IH 10/17/13 10/30/24 mcg/actuation blister powder for inhalation (Flovent Diskus) multivitamin 1 ea PO 10/17/13 10/30/24 warfarin 3 mg tablet 1.5 - 3 mg PO QPM 08/07/24 10/30/24 carvedilol 25 mg tablet 25 mg PO BID 08/08/24 10/30/24 gabapentin 300 mg capsule 300 mg PO QDAY 08/08/24 10/30/24 levothyroxine 88 mcg tablet 88 mcg PO QDAY 08/08/24 10/30/24 alendronate 70 mg tablet See Rx Instructions .Route 08/26/24 10/30/24 .COMPLEX #13 tabs spironolactone 25 mg tablet 25 mg PO QDAY #90 tabs 09/02/24 10/30/24 oxycodone-acetaminophen 5 mg-325 1 tab PO Q6H #60 tabs 10/27/24 10/30/24 mg tablet (Percocet) apixaban 5 mg tablet (Eliquis) 5 mg PO BID #60 tabs 10/30/24 10/30/24 Allergies Allergies Allergy/AdvReac Type Severity Reaction Status Date / Time ketoconazole Allergy Unknown Verified 11/01/24 15:15 latex Allergy Rash Verified 11/01/24 15:15 PFS Social History Social History Smoking Status: Never smoker If you are a former smoker, when did you quit? (Date/Year): NO Second hand tobacco smoke exposure: No Do you dip or chew tobacco?: No Do you vape?: No Living arrangement: At home Marital Status: Living Condition: With spouse/s.o. 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 Patient has POLST: No Review of Systems Status of ROS: 10 or more systems reviewed and unremarkable except as noted in history and below Constitutional Denies: Fever or Chills Cardiovascular Denies: Irregular heart rate, chest pain, palpitations or shortness of breath with exertion Respiratory Denies: Shortness of breath or Cough Gastrointestinal Denies: Abdominal pain or Abdominal distention Genitourinary Denies: Painful urination or Urinary frequency Integumentary/Breast Reports: Other (Wound on left leg, for which she sees the wound care clinic) Neurological Reports: General weakness; Denies: Focal weakness Exam Constitutional normal general appearance, no apparent distress and average body habitus HENMT normocephalic and head/scalp atraumatic Eyes PERRL Neck/C-Spine visual inspection normal Lymph no lymphadenopathy noted Chest inspection of chest normal Respiratory breath sounds equal bilaterally and clear to auscultation bilaterally Cardiovascular normal heart rate noted and regular rhythm noted Gastrointestinal abdomen normal to inspection Genitourinary no CVA tenderness and bladder normal to palpation Extremities normal to inspection and normal to palpation Neurology GCS 15 Psychiatry mental status grossly normal Skin Wound on the medial aspect of left thigh Conclusion/Plan Problem List (1) Cellulitis of left leg: Plan: She reports that an outside wound care clinic cultured this and it grew Pseudomonas. She was given a prescription for ciprofloxacin, which was supposed to start today. She has a white blood cell count of 11.5 and has an acute kidney injury. This could possibly be a sepsis type picture with end organ damage versus a cellulitis plus dehydration. She was given a dose of IV ciprofloxacin by the ER provider. I will continue IV ciprofloxacin while awaiting records from outside facility. I will also check a MRSA swab to see if we need to also cover with vancomycin (2) Acute kidney injury: Plan: She reports having good p.o. intake. Her disagrees, but says that it is not unreasonably low. Regardless, she has been given IV fluid resuscitation per the ER provider with some improvement in her creatinine. I am going to order a renal ultrasound and NS at 100. I anticipate her acute kidney failure will improve by the morning. Plan Placed in ICU observation for multiple electrolyte derangements in the setting of infection and acute kidney failure Full code is her surrogate decision-maker Lab Results Lab results reviewed: Yes 11/01/24 15:45 11/01/24 18:09 Core Measures Anticipated LOS I expect patient to be DC'd or transferred within 96 hours.: Yes DVT/VTE - Prophylaxis VTE/DVT Device ordered at admit?: No VTE/DVT Prophylaxis med ordered at admit?: Yes
[2024-11-01] MEDS ORDERED: SODIUM CHLORIDE FLUSH 0.9% 10 ML SYRINGE IVP PRN (21:17)
[2024-11-01] MEDS ORDERED: ACETAMINOPHEN 325 MG TABLET PO PRN (21:17)
[2024-11-01] MEDS: APIXABAN 5 MG TABLET PO SCH (21:38)
[2024-11-01] MEDS: ACETAMINOPHEN 500 MG TABLET PO SCH (21:38)
[2024-11-01] MEDS: SODIUM CHLORIDE 0.9% 1,000 ML IV SCH (21:39)
[2024-11-01] MEDS: HYDROmorphone 0.5 MG/0.5 ML SYRINGE IVP PRN (21:39)
--- NOTE | 2024-11-01 22:20 | Ultrasound Report ---
PROCEDURE: US Renal (Retroperitoneal) INDICATIONS: Acute kidney failure TECHNIQUE: Real-time scanning was performed of the retroperitoneal organs, with image documentation. COMPARISON: None. FINDINGS: Kidneys: Kidneys are normal in size. Right kidney measures 7 cm long; left kidney measures 8.9 cm l kary. Right renal cortical thickness is 0.8 cm; left renal cortical thickness is 1.3 cm. Right renal cysts. Nonobstructing left nephrolithiasis. No hydronephrosis Bladder: Pre-void bladder volume is 13 7 mL. Post-void residual unable to be obtained. Pre-void images demonstrate no intraluminal masses or stones. On pre-void images, bilateral ureteral jets are noted with color Doppler interrogation. (Of note, ureteral jets may not be detectable in up to 25% of cases due to insufficient differences i n specific gravity between ureteral and bladder urine). Miscellaneous: No free abdominal fluid. IMPRESSION: Bilateral atrophic kidneys, right greater than left. Nonobstructing left renal calculi. No hydronephrosis. Reviewed by: Conchis Fleming MD, PhD on 11/01/2024 10:18 PM PST Approved by: Conchis Fleming MD, PhD on 11/01/2024 10:18 PM PST Station ID: [id number]
[2024-11-02] MEDS: HYDROcod/ACETAM 5/325 MG TABLET PO PRN (02:54)
[2024-11-02] MEDS: SODIUM CHLORIDE FLUSH 0.9% 10 ML SYRINGE IVP SCH (05:22)
[2024-11-02 05:36] LABS: BASOPHILS # (AUTO) 0.1 10^3/uL (0.0-0.1); BASOPHILS % (AUTO) 0.8 %; EOSINOPHILS # (AUTO) 0.2 10^3/uL (0.0-0.7); EOSINOPHILS % (AUTO) 1.8 %; HCT - HEMATOCRIT 28.1 % (37.0-47.0); HGB - HEMOGLOBIN 8.7 g/dL (12.0-16.0); LYMPHOCYTES # (AUTO) 0.8 10^3/uL (1.5-3.5); LYMPHOCYTES % (AUTO) 8.4 %; MEAN CORPUSCULAR VOLUME 96.9 fL (81.0-99.0); MEAN PLATELET VOLUME 12.6 fL (7.9-10.8); MONOCYTES % (AUTO) 11.5 %; NEUTROPHILS # (AUTO) 6.9 10^3/uL (1.5-6.6); NEUTROPHILS % (AUTO) 77.3 %; PLT - PLATELET COUNT 128 10^3/uL (130-450); RED CELL DISTRIBUTION WIDTH 15.6 % (12.0-15.0); WHITE BLOOD COUNT 8.9 x10^3/uL (4.8-10.8)
[2024-11-02 05:38] LABS: CALCIUM, IONIZED 1.07 mmol/L (1.09-1.30); VBG PH 7.34 (7.31-7.41)
[2024-11-02 05:49] LABS: MAGNESIUM 1.7 mg/dL (1.7-2.3)
[2024-11-02 05:55] LABS: CALCIUM 7.4 mg/dL (8.5-10.3); CREATININE 1.9 mg/dL (0.6-1.3); PHOSPHORUS 2.9 mg/dL (2.5-5.0); POTASSIUM 5.4 mmol/L (3.5-4.5)
[2024-11-02] MEDS: DEXTROSE 50% ABBOJECT 25 GM/50 ML SYRINGE IVP ONE (07:50)
[2024-11-02] MEDS: SODIUM ZIRCONIUM CYCLOSILICATE 5 GM PACKET PO ONE (07:50)
[2024-11-02] MEDS: INSULIN REGULAR, HUMAN 300 UNIT/3 ML PEN IVP ONE (07:50)
[2024-11-02] MEDS ORDERED: DEXTROSE 50% ABBOJECT 25 GM/50 ML SYRINGE ONE (07:54)
[2024-11-02] MEDS: CALCIUM GLUC 1,000MG/50ML-NACL 1,000 MG/50 ML BAG IV STA (07:54)
[2024-11-02] MEDS: CONCENTRATED ALBUTEROL NEB 2.5 MG/0.5 ML INH STA (08:44)
[2024-11-02] MEDS: CIPROFLOXACIN 400 MG/200 ML 400 MG/200 ML BAG IV SCH ×2 (09:19→09:43)
[2024-11-02] MEDS: CALCIUM CARBONATE CHEW 500 MG TABLET PO SCH (09:19)
--- NOTE | 2024-11-02 11:22 | PROVIDER PROGRESS NOTE ---
Subjective Prog Note Date Prog Note Date: 11/02/24 Subjective Pt reports feeling: Improved Current Medications Current Medications Current Medications: Current Medications Generic Name Dose Route Start Last Admin Trade Name Sushantq PRN Reason Stop Dose Admin Acetaminophen 1,000 mg 11/01/24 22:00 11/02/24 06:53 Acetaminophen 500 Mg Tablet PO 1,000 mg TID MAMIE Administration Hydrocodone Bitart/Acetaminophen 1 tab 11/01/24 21:17 11/02/24 08:53 Hydrocod/Acetam 5/325 Mg Tablet PO 1 tab Q4HR PRN Administration Pain 5 to 7 Apixaban 5 mg 11/01/24 21:17 11/02/24 09:20 Apixaban 5 Mg Tablet PO 5 mg BID MAMIE Administration Calcium Carbonate/Glycine 1,250 mg 11/02/24 08:00 11/02/24 09:19 Calcium Carbonate Chew 500 Mg Tablet PO 11/02/24 12:01 1,250 mg Q4H MAMIE Administration Protocol Hydromorphone HCl 0.2 mg 11/01/24 21:24 11/01/24 21:39 Hydromorphone 0.5 Mg/0.5 Ml Syringe IVP 0.2 mg Q2H PRN Administration Severe Pain (Level 7-10) Sodium Chloride 1,000 mls @ 125 mls/hr 11/01/24 22:00 11/02/24 07:58 Normal Saline 0.9% IV 11/02/24 13:59 0 mls/hr .Q8H MAMIE Infusion Ciprofloxacin 400 mg in 200 mls @ 200 mls/hr 11/02/24 08:00 11/02/24 10:22 Cipro 400 Mg/200 Ml IV Infused Q12H MAMIE Infusion Sodium Chloride 1,000 mls @ 999 mls/hr 11/02/24 11:18 Normal Saline 0.9% IV 11/02/24 12:18 ONCE ONE Sodium Chloride 10 ml 11/02/24 01:00 11/02/24 09:20 Sodium Chloride Flush 0.9% 10 Ml Syringe IVP 10 ml [id number],1700 MAMIE Administration Sodium Chloride 10 ml 11/01/24 21:17 Sodium Chloride Flush 0.9% 10 Ml Syringe IVP PRN PRN NEEDED PER PROVIDER ORDERS Objective Vital Signs/Intake & Output Reviewed Vital Signs: Yes Vital Signs: Vital Signs x48h Temp Pulse Pulse Resp BP BP Pulse Ox 11/02/24 11:00 56 L 15 138/68 H 95 11/02/24 10:41 97 11/02/24 10:00 58 L 16 119/55 L 96 11/02/24 09:00 53 L 17 112/43 L 97 11/02/24 08:50 58 L 22 11/02/24 08:09 135/36 H 11/02/24 08:00 36.7 C 61 16 96 11/02/24 07:00 57 L 12 138/54 H 96 11/02/24 06:00 58 L 18 128/69 96 11/02/24 05:00 58 L 13 116/50 L 97 11/02/24 04:00 51 L 8 L 113/48 L 97 O2 Flow Rate 11/02/24 11:00 11/02/24 10:41 11/02/24 10:00 2 11/02/24 09:00 2 11/02/24 08:50 2 11/02/24 08:09 11/02/24 08:00 2 11/02/24 07:00 2 11/02/24 06:00 2 11/02/24 05:00 2 11/02/24 04:00 2 Intake & Output: Intake & Output 10/30/24 10/31/24 11/01/24 11/02/24 23:59 23:59 23:59 23:59 Intake Total 2440 / 2440 1780 / 1780 Output Total 575 / 575 Balance 2440 / 2440 1205 / 1205 Weight (kg) 63.5 kg 64 kg Objective General Appearance: positive No acute distress and Alert Eyes Bilateral: positive Normal inspection ENT: positive No signs of dehydration Neck: positive No JVD Respiratory: positive Breath sounds nml Cardiovascular: positive Regular rate & rhythm Abdomen: positive Non-tender Skin: positive Other (Wound on medial aspect of left thigh. Pictures and nursing charting) Extremities: positive Other (Wound as described above) Neurologic/Psychiatric: positive Oriented x3 Lab Results 11/02/24 04:20 11/02/24 04:20 Other Labs: Lab Results x24hrs 11/02/24 11/02/24 11/02/24 Range/Units 09:50 07:54 04:20 WBC 8.9 (4.8-10.8) x10^3/uL RBC 2.90 L (4.20-5.40) 10^6/uL Hgb 8.7 L (12.0-16.0) g/dL Hct 28.1 L (37.0-47.0) % MCV 96.9 (81.0-99.0) fL MCH 30.0 (27.0-31.0) pg MCHC 31.0 L (32.0-36.0) g/dL RDW 15.6 H (12.0-15.0) % Plt Count 128 L (130-450) 10^3/uL MPV 12.6 H (7.9-10.8) fL Neut # (Auto) 6.9 H (1.5-6.6) 10^3/uL Lymph # (Auto) 0.8 L (1.5-3.5) 10^3/uL Cameron # (Auto) 1.0 (0.0-1.0) 10^3/uL Eos # (Auto) 0.2 (0.0-0.7) 10^3/uL Baso # (Auto) 0.1 (0.0-0.1) 10^3/uL Absolute Nucleated RBC 0.00 x10^3/uL Nucleated RBC % 0.0 /100WBC PT (9.9-12.6) secs INR (0.8-1.2) VBG pH 7.340 (7.31-7.41) Ionized Calcium 1.07 L (1.09-1.30) mmol/L Sodium 135 (135-145) mmol/L Potassium 5.4 H (3.5-4.5) mmol/L Chloride 108 (101-111) mmol/L Carbon Dioxide 23 (21-32) mmol/L Anion Gap 4.0 L (6-13) BUN 36 H (6-20) mg/dL Creatinine 1.9 H (0.6-1.3) mg/dL Estimated GFR (MDRD) 26 L (>89) Glucose 82 (74-104) mg/dL POC Whole Bld Glucose 123 82 (70-100) mg/dL Lactic Acid (0.5-2.2) mmol/L Calcium 7.4 L (8.5-10.3) mg/dL Phosphorus 2.9 (2.5-5.0) mg/dL Magnesium 1.7 (1.7-2.3) mg/dL Total Bilirubin (0.2-1.0) mg/dL AST (10-42) IU/L ALT (10-60) IU/L Alkaline Phosphatase (42-121) IU/L Total Protein (6.4-8.9) g/dL Albumin (3.2-5.5) g/dL Globulin (2.1-4.2) g/dL Albumin/Globulin Ratio (1.0-2.2) Nasal Screen MRSA (PCR) (NEGATIVE) 11/02/24 11/01/24 11/01/24 Range/Units 01:05 22:54 21:18 WBC (4.8-10.8) x10^3/uL RBC (4.20-5.40) 10^6/uL Hgb (12.0-16.0) g/dL Hct (37.0-47.0) % MCV (81.0-99.0) fL MCH (27.0-31.0) pg MCHC (32.0-36.0) g/dL RDW (12.0-15.0) % Plt Count (130-450) 10^3/uL MPV (7.9-10.8) fL Neut # (Auto) (1.5-6.6) 10^3/uL Lymph # (Auto) (1.5-3.5) 10^3/uL Cameron # (Auto) (0.0-1.0) 10^3/uL Eos # (Auto) (0.0-0.7) 10^3/uL Baso # (Auto) (0.0-0.1) 10^3/uL Absolute Nucleated RBC x10^3/uL Nucleated RBC % /100WBC PT (9.9-12.6) secs INR (0.8-1.2) VBG pH (7.31-7.41) Ionized Calcium (1.09-1.30) mmol/L Sodium (135-145) mmol/L Potassium (3.5-4.5) mmol/L Chloride (101-111) mmol/L Carbon Dioxide (21-32) mmol/L Anion Gap (6-13) BUN (6-20) mg/dL Creatinine (0.6-1.3) mg/dL Estimated GFR (MDRD) (>89) Glucose (74-104) mg/dL POC Whole Bld Glucose 102 93 119 (70-100) mg/dL Lactic Acid (0.5-2.2) mmol/L Calcium (8.5-10.3) mg/dL Phosphorus (2.5-5.0) mg/dL Magnesium (1.7-2.3) mg/dL Total Bilirubin (0.2-1.0) mg/dL AST (10-42) IU/L ALT (10-60) IU/L Alkaline Phosphatase (42-121) IU/L Total Protein (6.4-8.9) g/dL Albumin (3.2-5.5) g/dL Globulin (2.1-4.2) g/dL Albumin/Globulin Ratio (1.0-2.2) Nasal Screen MRSA (PCR) (NEGATIVE) 11/01/24 11/01/24 11/01/24 Range/Units 21:10 20:08 18:09 WBC (4.8-10.8) x10^3/uL RBC (4.20-5.40) 10^6/uL Hgb (12.0-16.0) g/dL Hct (37.0-47.0) % MCV (81.0-99.0) fL MCH (27.0-31.0) pg MCHC (32.0-36.0) g/dL RDW (12.0-15.0) % Plt Count (130-450) 10^3/uL MPV (7.9-10.8) fL Neut # (Auto) (1.5-6.6) 10^3/uL Lymph # (Auto) (1.5-3.5) 10^3/uL Cameron # (Auto) (0.0-1.0) 10^3/uL Eos # (Auto) (0.0-0.7) 10^3/uL Baso # (Auto) (0.0-0.1) 10^3/uL Absolute Nucleated RBC x10^3/uL Nucleated RBC % /100WBC PT (9.9-12.6) secs INR (0.8-1.2) VBG pH (7.31-7.41) Ionized Calcium (1.09-1.30) mmol/L Sodium 134 L (135-145) mmol/L Potassium 4.6 H (3.5-4.5) mmol/L Chloride 105 (101-111) mmol/L Carbon Dioxide 24 (21-32) mmol/L Anion Gap 5.0 L (6-13) BUN 40 H (6-20) mg/dL Creatinine 2.2 H (0.6-1.3) mg/dL Estimated GFR (MDRD) 22 L (>89) Glucose 46 L* (74-104) mg/dL POC Whole Bld Glucose 163 (70-100) mg/dL Lactic Acid (0.5-2.2) mmol/L Calcium 7.5 L (8.5-10.3) mg/dL Phosphorus (2.5-5.0) mg/dL Magnesium (1.7-2.3) mg/dL Total Bilirubin (0.2-1.0) mg/dL AST (10-42) IU/L ALT (10-60) IU/L Alkaline Phosphatase (42-121) IU/L Total Protein (6.4-8.9) g/dL Albumin (3.2-5.5) g/dL Globulin (2.1-4.2) g/dL Albumin/Globulin Ratio (1.0-2.2) Nasal Screen MRSA (PCR) NEGATIVE (NEGATIVE) 11/01/24 11/01/24 Range/Units 16:37 15:45 WBC 11.5 H (4.8-10.8) x10^3/uL RBC 3.43 L (4.20-5.40) 10^6/uL Hgb 10.4 L (12.0-16.0) g/dL Hct 33.0 L (37.0-47.0) % MCV 96.2 (81.0-99.0) fL MCH 30.3 (27.0-31.0) pg MCHC 31.5 L (32.0-36.0) g/dL RDW 15.7 H (12.0-15.0) % Plt Count 174 (130-450) 10^3/uL MPV 12.3 H (7.9-10.8) fL Neut # (Auto) 8.9 H (1.5-6.6) 10^3/uL Lymph # (Auto) 1.1 L (1.5-3.5) 10^3/uL Cameron # (Auto) 1.3 H (0.0-1.0) 10^3/uL Eos # (Auto) 0.2 (0.0-0.7) 10^3/uL Baso # (Auto) 0.1 (0.0-0.1) 10^3/uL Absolute Nucleated RBC 0.00 x10^3/uL Nucleated RBC % 0.0 /100WBC PT 14.0 H (9.9-12.6) secs INR 1.3 H (0.8-1.2) VBG pH (7.31-7.41) Ionized Calcium (1.09-1.30) mmol/L Sodium 132 L (135-145) mmol/L Potassium 6.4 H* (3.5-4.5) mmol/L Chloride 99 L (101-111) mmol/L Carbon Dioxide 27 (21-32) mmol/L Anion Gap 6.0 (6-13) BUN 46 H (6-20) mg/dL Creatinine 2.7 H (0.6-1.3) mg/dL Estimated GFR (MDRD) 17 L (>89) Glucose 96 (74-104) mg/dL POC Whole Bld Glucose (70-100) mg/dL Lactic Acid 1.6 (0.5-2.2) mmol/L Calcium 8.8 (8.5-10.3) mg/dL Phosphorus (2.5-5.0) mg/dL Magnesium (1.7-2.3) mg/dL Total Bilirubin 0.7 (0.2-1.0) mg/dL AST 168 H (10-42) IU/L ALT 52 (10-60) IU/L Alkaline Phosphatase 68 (42-121) IU/L Total Protein 6.0 L (6.4-8.9) g/dL Albumin 3.5 (3.2-5.5) g/dL Globulin 2.5 (2.1-4.2) g/dL Albumin/Globulin Ratio 1.4 (1.0-2.2) Nasal Screen MRSA (PCR) (NEGATIVE) Assessment/Plan Problem List (1) Cellulitis of left leg: Impression: She reports that an outside wound care clinic cultured this and it grew Pseudomonas. She was given a prescription for ciprofloxacin, which was supposed to start today. She has a white blood cell count of 11.5 and has an acute kidney injury. This could possibly be a sepsis type picture with end organ damage versus a cellulitis plus dehydration. She was given a dose of IV ciprofloxacin by the ER provider. I will continue IV ciprofloxacin while awaiting records from outside facility. I will also check a MRSA swab to see if we need to also cover with vancomycin 11/02/2024: Leukocytosis is improving on IV ciprofloxacin. Discussed case with general surgery, he will round later today to determine if she needs inpatient debridement (2) Acute kidney injury: Impression: She reports having good p.o. intake. Her disagrees, but says that it is not unreasonably low. Regardless, she has been given IV fluid resuscitation per the ER provider with some improvement in her creatinine. I am going to order a renal ultrasound and NS at 100. I anticipate her acute kidney failure will improve by the morning. 11/02/2024: Continue IVF, additional 1 L NS bolus. Had hyperkalemia again today, received another cocktail of D50/insulin, albuterol, Calcium. Repeat BMP this afternoon. Good urine output. Renal ultrasound shows bilateral atrophic kidneys, right greater than left. Also shows nonobstructing left renal calculi without hydronephrosis
[2024-11-02] MEDS: SODIUM CHLORIDE 0.9% 1,000 ML IV ONE (11:41)
[2024-11-02 13:05] LABS: CALCIUM, IONIZED 1.11 mmol/L (1.09-1.30); VBG PH 7.355 (7.31-7.41)
[2024-11-02 13:18] LABS: CALCIUM 7.8 mg/dL (8.5-10.3); CREATININE 1.7 mg/dL (0.6-1.3); POTASSIUM 5.1 mmol/L (3.5-4.5)
--- NOTE | 2024-11-02 13:53 | CONSULTATION NOTE ---
[facility] Social History Social History Smoking Status: Never smoker If you are a former smoker, when did you quit? (Date/Year): NO Second hand tobacco smoke exposure: No Do you dip or chew tobacco?: No Do you vape?: No Patient requests smoking cessation consult: No Initiate information on smoking cessation: No Living arrangement: At home Marital Status: Living Condition: With spouse/s.o. 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 Patient has POLST: No Meds/Allgy Home Medications Ambulatory Orders Medication Instructions Recorded Confirmed lisinopril 20 mg tablet 40 mg PO DAILY 07/11/13 10/30/24 lovastatin 40 mg tablet (Mevacor) 40 mg ORAL DAILY 07/11/13 10/30/24 cholecalciferol (vitamin D3) 10 400 unit PO 10/17/13 10/30/24 mcg (400 unit) capsule (Vitamin D3) fluticasone propionate 250 50 mcg IH 10/17/13 10/30/24 mcg/actuation blister powder for inhalation (Flovent Diskus) multivitamin 1 ea PO 10/17/13 10/30/24 carvedilol 25 mg tablet 25 mg PO BID 08/08/24 10/30/24 gabapentin 300 mg capsule 300 mg PO QDAY 08/08/24 10/30/24 levothyroxine 88 mcg tablet 88 mcg PO QDAY 08/08/24 10/30/24 alendronate 70 mg tablet See Rx Instructions .Route 08/26/24 10/30/24 .COMPLEX #13 tabs spironolactone 25 mg tablet 25 mg PO QDAY #90 tabs 09/02/24 10/30/24 oxycodone-acetaminophen 5 mg-325 1 tab PO Q6H #60 tabs 10/27/24 10/30/24 mg tablet (Percocet) apixaban 5 mg tablet (Eliquis) 5 mg PO BID #60 tabs 10/30/24 10/30/24 colchicine 0.6 mg tablet mg 11/02/24 leflunomide 20 mg tablet mg 11/02/24 prednisone 5 mg tablet mg 11/02/24 Allergies Allergies Allergy/AdvReac Type Severity Reaction Status Date / Time ketoconazole Allergy Unknown Verified 11/01/24 15:15 latex Allergy Rash Verified 11/01/24 15:15 Results Lab Results 11/02/24 04:20 11/02/24 12:55 Other Lab Results: Lab Results x24hrs 11/02/24 11/02/24 11/02/24 Range/Units 12:55 11:53 09:50 WBC (4.8-10.8) x10^3/uL RBC (4.20-5.40) 10^6/uL Hgb (12.0-16.0) g/dL Hct (37.0-47.0) % MCV (81.0-99.0) fL MCH (27.0-31.0) pg MCHC (32.0-36.0) g/dL RDW (12.0-15.0) % Plt Count (130-450) 10^3/uL MPV (7.9-10.8) fL Neut # (Auto) (1.5-6.6) 10^3/uL Lymph # (Auto) (1.5-3.5) 10^3/uL Dooly # (Auto) (0.0-1.0) 10^3/uL Eos # (Auto) (0.0-0.7) 10^3/uL Baso # (Auto) (0.0-0.1) 10^3/uL Absolute Nucleated RBC x10^3/uL Nucleated RBC % /100WBC PT (9.9-12.6) secs INR (0.8-1.2) VBG pH 7.355 (7.31-7.41) Ionized Calcium 1.11 (1.09-1.30) mmol/L Sodium 137 (135-145) mmol/L Potassium 5.1 H (3.5-4.5) mmol/L Chloride 111 (101-111) mmol/L Carbon Dioxide 22 (21-32) mmol/L Anion Gap 4.0 L (6-13) BUN 29 H (6-20) mg/dL Creatinine 1.7 H (0.6-1.3) mg/dL Estimated GFR (MDRD) 29 L (>89) Glucose 96 (74-104) mg/dL POC Whole Bld Glucose 90 123 (70-100) mg/dL Lactic Acid (0.5-2.2) mmol/L Calcium 7.8 L (8.5-10.3) mg/dL Phosphorus (2.5-5.0) mg/dL Magnesium (1.7-2.3) mg/dL Total Bilirubin (0.2-1.0) mg/dL AST (10-42) IU/L ALT (10-60) IU/L Alkaline Phosphatase (42-121) IU/L Total Protein (6.4-8.9) g/dL Albumin (3.2-5.5) g/dL Globulin (2.1-4.2) g/dL Albumin/Globulin Ratio (1.0-2.2) Nasal Screen MRSA (PCR) (NEGATIVE) 11/02/24 11/02/24 11/02/24 Range/Units 07:54 04:20 01:05 WBC 8.9 (4.8-10.8) x10^3/uL RBC 2.90 L (4.20-5.40) 10^6/uL Hgb 8.7 L (12.0-16.0) g/dL Hct 28.1 L (37.0-47.0) % MCV 96.9 (81.0-99.0) fL MCH 30.0 (27.0-31.0) pg MCHC 31.0 L (32.0-36.0) g/dL RDW 15.6 H (12.0-15.0) % Plt Count 128 L (130-450) 10^3/uL MPV 12.6 H (7.9-10.8) fL Neut # (Auto) 6.9 H (1.5-6.6) 10^3/uL Lymph # (Auto) 0.8 L (1.5-3.5) 10^3/uL [place]ooly # (Auto) 1.0 (0.0-1.0) 10^3/uL Eos # (Auto) 0.2 (0.0-0.7) 10^3/uL Baso # (Auto) 0.1 (0.0-0.1) 10^3/uL Absolute Nucleated RBC 0.00 x10^3/uL Nucleated RBC % 0.0 /100WBC PT (9.9-12.6) secs INR (0.8-1.2) VBG pH 7.340 (7.31-7.41) Ionized Calcium 1.07 L (1.09-1.30) mmol/L Sodium 135 (135-145) mmol/L Potassium 5.4 H (3.5-4.5) mmol/L Chloride 108 (101-111) mmol/L Carbon Dioxide 23 (21-32) mmol/L Anion Gap 4.0 L (6-13) BUN 36 H (6-20) mg/dL Creatinine 1.9 H (0.6-1.3) mg/dL Estimated GFR (MDRD) 26 L (>89) Glucose 82 (74-104) mg/dL POC Whole Bld Glucose 82 102 (70-100) mg/dL Lactic Acid (0.5-2.2) mmol/L Calcium 7.4 L (8.5-10.3) mg/dL Phosphorus 2.9 (2.5-5.0) mg/dL Magnesium 1.7 (1.7-2.3) mg/dL Total Bilirubin (0.2-1.0) mg/dL AST (10-42) IU/L ALT (10-60) IU/L Alkaline Phosphatase (42-121) IU/L Total Protein (6.4-8.9) g/dL Albumin (3.2-5.5) g/dL Globulin (2.1-4.2) g/dL Albumin/Globulin Ratio (1.0-2.2) Nasal Screen MRSA (PCR) (NEGATIVE) 11/01/24 11/01/24 11/01/24 Range/Units 22:54 21:18 21:10 WBC (4.8-10.8) x10^3/uL RBC (4.20-5.40) 10^6/uL Hgb (12.0-16.0) g/dL Hct (37.0-47.0) % MCV (81.0-99.0) fL MCH (27.0-31.0) pg MCHC (32.0-36.0) g/dL RDW (12.0-15.0) % Plt Count (130-450) 10^3/uL MPV (7.9-10.8) fL Neut # (Auto) (1.5-6.6) 10^3/uL Lymph # (Auto) (1.5-3.5) 10^3/uL [place]y # (Auto) (0.0-1.0) 10^3/uL Eos # (Auto) (0.0-0.7) 10^3/uL Baso # (Auto) (0.0-0.1) 10^3/uL Absolute Nucleated RBC x10^3/uL Nucleated RBC % /100WBC PT (9.9-12.6) secs INR (0.8-1.2) VBG pH (7.31-7.41) Ionized Calcium (1.09-1.30) mmol/L Sodium (135-145) mmol/L Potassium (3.5-4.5) mmol/L Chloride (101-111) mmol/L Carbon Dioxide (21-32) mmol/L Anion Gap (6-13) BUN (6-20) mg/dL Creatinine (0.6-1.3) mg/dL Estimated GFR (MDRD) (>89) Glucose (74-104) mg/dL POC Whole Bld Glucose 93 119 (70-100) mg/dL Lactic Acid (0.5-2.2) mmol/L Calcium (8.5-10.3) mg/dL Phosphorus (2.5-5.0) mg/dL Magnesium (1.7-2.3) mg/dL Total Bilirubin (0.2-1.0) mg/dL AST (10-42) IU/L ALT (10-60) IU/L Alkaline Phosphatase (42-121) IU/L Total Protein (6.4-8.9) g/dL Albumin (3.2-5.5) g/dL Globulin (2.1-4.2) g/dL Albumin/Globulin Ratio (1.0-2.2) Nasal Screen MRSA (PCR) NEGATIVE (NEGATIVE) 11/01/24 11/01/24 11/01/24 Range/Units 20:08 18:09 16:37 WBC (4.8-10.8) x10^3/uL RBC (4.20-5.40) 10^6/uL Hgb (12.0-16.0) g/dL Hct (37.0-47.0) % MCV (81.0-99.0) fL MCH (27.0-31.0) pg MCHC (32.0-36.0) g/dL RDW (12.0-15.0) % Plt Count (130-450) 10^3/uL MPV (7.9-10.8) fL Neut # (Auto) (1.5-6.6) 10^3/uL Lymph # (Auto) (1.5-3.5) 10^3/uL [place] # (Auto) (0.0-1.0) 10^3/uL Eos # (Auto) (0.0-0.7) 10^3/uL Baso # (Auto) (0.0-0.1) 10^3/uL Absolute Nucleated RBC x10^3/uL Nucleated RBC % /100WBC PT (9.9-12.6) secs INR (0.8-1.2) VBG pH (7.31-7.41) Ionized Calcium (1.09-1.30) mmol/L Sodium 134 L (135-145) mmol/L Potassium 4.6 H (3.5-4.5) mmol/L Chloride 105 (101-111) mmol/L Carbon Dioxide 24 (21-32) mmol/L Anion Gap 5.0 L (6-13) BUN 40 H (6-20) mg/dL Creatinine 2.2 H (0.6-1.3) mg/dL Estimated GFR (MDRD) 22 L (>89) Glucose 46 L* (74-104) mg/dL POC Whole Bld Glucose 163 (70-100) mg/dL Lactic Acid 1.6 (0.5-2.2) mmol/L Calcium 7.5 L (8.5-10.3) mg/dL Phosphorus (2.5-5.0) mg/dL Magnesium (1.7-2.3) mg/dL Total Bilirubin (0.2-1.0) mg/dL AST (10-42) IU/L ALT (10-60) IU/L Alkaline Phosphatase (42-121) IU/L Total Protein (6.4-8.9) g/dL Albumin (3.2-5.5) g/dL Globulin (2.1-4.2) g/dL Albumin/Globulin Ratio (1.0-2.2) Nasal Screen MRSA (PCR) (NEGATIVE) 11/01/24 Range/Units 15:45 WBC 11.5 H (4.8-10.8) x10^3/uL RBC 3.43 L (4.20-5.40) 10^6/uL Hgb 10.4 L (12.0-16.0) g/dL Hct 33.0 L (37.0-47.0) % MCV 96.2 (81.0-99.0) fL MCH 30.3 (27.0-31.0) pg MCHC 31.5 L (32.0-36.0) g/dL RDW 15.7 H (12.0-15.0) % Plt Count 174 (130-450) 10^3/uL MPV 12.3 H (7.9-10.8) fL Neut # (Auto) 8.9 H (1.5-6.6) 10^3/uL Lymph # (Auto) 1.1 L (1.5-3.5) 10^3/uL [place] # (Auto) 1.3 H (0.0-1.0) 10^3/uL Eos # (Auto) 0.2 (0.0-0.7) 10^3/uL Baso # (Auto) 0.1 (0.0-0.1) 10^3/uL Absolute Nucleated RBC 0.00 x10^3/uL Nucleated RBC % 0.0 /100WBC PT 14.0 H (9.9-12.6) secs INR 1.3 H (0.8-1.2) VBG pH (7.31-7.41) Ionized Calcium (1.09-1.30) mmol/L Sodium 132 L (135-145) mmol/L Potassium 6.4 H* (3.5-4.5) mmol/L Chloride 99 L (101-111) mmol/L Carbon Dioxide 27 (21-32) mmol/L Anion Gap 6.0 (6-13) BUN 46 H (6-20) mg/dL Creatinine 2.7 H (0.6-1.3) mg/dL Estimated GFR (MDRD) 17 L (>89) Glucose 96 (74-104) mg/dL POC Whole Bld Glucose (70-100) mg/dL Lactic Acid (0.5-2.2) mmol/L Calcium 8.8 (8.5-10.3) mg/dL Phosphorus (2.5-5.0) mg/dL Magnesium (1.7-2.3) mg/dL Total Bilirubin 0.7 (0.2-1.0) mg/dL AST 168 H (10-42) IU/L ALT 52 (10-60) IU/L Alkaline Phosphatase 68 (42-121) IU/L Total Protein 6.0 L (6.4-8.9) g/dL Albumin 3.5 (3.2-5.5) g/dL Globulin 2.5 (2.1-4.2) g/dL Albumin/Globulin Ratio 1.4 (1.0-2.2) Nasal Screen MRSA (PCR) (NEGATIVE) Conclusion and Plan Consultation Note Consultation Note: S: I have been asked by Kyree Nichols DNP to evaluate the left upper inner thigh wound on Oly Chang, a 79 year old female who was admitted to the Medical Hospitalist Service 11/01/24 with hyperkalemia, weakness, and fatigue. During the course of her evaluation, a left inner thigh wound with overlying eschar was identified. I was asked to assist in the evaluation and management of this left inner thigh skin wound. The patient has had induration on the left inner thigh for over two years and has undergone an extensive diagnostic workup recently due to necrosis of the wound to include consultation with Dermatology, Pathology, Vascular Surgery, and Wound Care. Her most recent evaluation by Dermatology is well documented in the 10/29/2024 scanned note. 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 She has never undergone surgical debridement of the wound. O: On examination today, she is awake, alert, oriented and comfortable. She is hearing impaired but can hear if words are clearly enunciated. Her was present at the time of the encounter. She denies pain in the area of the left inner thigh wound. VS: T 37; P 65; RR 21; BP 150/87 Left inner thigh: There is an irregular skin epidermal ulceration on the medial aspect of the left inner thigh. The dimensions of the wound are about 5 cm x 4 cm in length and width. The majority of the wound is covered with a black eschar and there is circumferential erythema of the surrounding epidermis for a distance of about 1 cm. There is no fluctuance but there is drainage of cloudy fluid from the inferior aspect of the wound that is not covered with eschar. Exposed desiccated adipose tissue is visible. The area is minimally tender to palpation and there is no evidence of lymphangitis. Labs: WBC 8.9k; Hgb 8.7; Hct 28.1; Plt 128k; INR 1.3; Na 137; K 5.1; Cl 111; BUN 29; Cr 1.7; Lactate 1.6; Ca 7.8; TP 6.0; Alb 3.5 Images: CT left leg: left medial thigh ulceration with minimal depth and minimal surrounding inflammation. No microcalcifications. No evidence of myositis Aortography and lower extremity angiography - no evidence of stenosis or inflow restriction; Occluded Celiac; Stenotic SMA; Dilated Arc of Riol[place] which is a collateral to the SMA and Celiac Cultures: There is a report from an outside clinic that the wound grew pseudomonas Assessment: 1) Left medical thigh ulceration with associated eschar. No evidence of active infection at this point in time. 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 2) Local wound care with hydrophilic ointment and/or Silvadene may help spontaneous dislodgment of the eschar and treat the pseudomonas colonization as well 3) Continue with the management plan outlined in the most recent Dermatology consultation 4) Consider out-patient referral to General Surgery for excision of the eschar (either in office under local or in OR) if there is evidence of sub-eschar infection Thien East MD, [facility] General Surgery Service
[2024-11-02] MEDS: SODIUM BICARBONATE 650 MG TABLET PO SCH (14:20)
--- NOTE | 2024-11-02 14:59 | PHARMACY PROGRESS NOTE ---
Best Possible Medication History Admit Date and Time: 11/01/24 [id number] Home Medications Medication Instructions Recorded Confirmed Type lisinopril 20 mg tablet 40 mg PO DAILY 07/11/13 11/02/24 History lovastatin 40 mg tablet (Mevacor) 40 mg PO DAILY 07/11/13 11/02/24 History carvedilol 25 mg tablet 25 mg PO BID 08/08/24 11/02/24 History gabapentin 300 mg capsule 300 - 600 mg PO BID 08/08/24 11/02/24 History levothyroxine 88 mcg tablet 88 mcg PO QDAC 08/08/24 11/02/24 History apixaban 5 mg tablet (Eliquis) 5 mg PO BID #60 tabs 10/30/24 11/02/24 Rx alendronate 70 mg tablet 70 mg PO ENGLISH 11/02/24 11/02/24 History leflunomide 20 mg tablet 20 mg PO DAILY 11/02/24 11/02/24 History multivitamin (Daily Multi-Vitamin 1 tab PO DAILY 11/02/24 11/02/24 History tablet) oxycodone-acetaminophen 5 mg-325 1 tab PO Q6H PRN pain (scale score 11/02/24 11/02/24 History mg tablet (Percocet) 4-6) spironolactone 25 mg tablet 25 mg PO DAILY 11/02/24 11/02/24 History Processed by: Pharmacy Medications reviewed in ED?: No Medication History completed: Yes Patient Interview: Completed Secondary Source(s): Insurance records and Previous admit records [facility] Statement: As the person ultimately responsible for medication therapy, providers are able to order a medication from an existing home medication list in [facility] via the "Reconcile Routine" prior to Confirmation of that medication by media production support manager. Such practice is discouraged except when the physician, in their clinical judgment, deems that a medical need exists for a medication without regard to previous use.
[2024-11-02] MEDS: oxyCODONE 5 MG TABLET PO PRN (17:11)
[2024-11-02] MEDS: SODIUM CHLORIDE 0.9% 1,000 ML IV SCH (19:02)
[2024-11-02] MEDS: GABAPENTIN 300 MG CAPSULE PO SCH (20:29)
[2024-11-02] MEDS: carvediloL 12.5 MG TABLET PO SCH (20:29)
[2024-11-02] MEDS: ATORVASTATIN 10 MG TABLET PO SCH (20:30)
[2024-11-02] MEDS: SILVER SULFADIAZINE CREAM 25 GM TUBE TOP SCH (20:30)
[2024-11-02] MEDS ORDERED: ONDANSETRON 4 MG/2 ML VIAL IVP PRN (21:10)
[2024-11-03] MEDS: ALENDRONATE 70 MG TABLET PO SCH (07:01)
[2024-11-03] MEDS: LEVOTHYROXINE 88 MCG TABLET PO SCH (07:01)
[2024-11-03 07:14] LABS: BASOPHILS # (AUTO) 0.1 10^3/uL (0.0-0.1); BASOPHILS % (AUTO) 0.5 %; EOSINOPHILS # (AUTO) 0.1 10^3/uL (0.0-0.7); EOSINOPHILS % (AUTO) 1.5 %; HCT - HEMATOCRIT 29.4 % (37.0-47.0); HGB - HEMOGLOBIN 9.1 g/dL (12.0-16.0); LYMPHOCYTES # (AUTO) 0.6 10^3/uL (1.5-3.5); LYMPHOCYTES % (AUTO) 6.7 %; MEAN CORPUSCULAR HEMOGLOBIN 30.1 pg (27.0-31.0); MEAN CORPUSCULAR VOLUME 97.4 fL (81.0-99.0); MEAN PLATELET VOLUME 12.1 fL (7.9-10.8); MONOCYTES # (AUTO) 0.9 10^3/uL (0.0-1.0); NEUTROPHILS # (AUTO) 7.5 10^3/uL (1.5-6.6); PLT - PLATELET COUNT 150 10^3/uL (130-450); RED BLOOD COUNT 3.02 10^6/uL (4.20-5.40); RED CELL DISTRIBUTION WIDTH 15.5 % (12.0-15.0); WHITE BLOOD COUNT 9.3 x10^3/uL (4.8-10.8)
[2024-11-03 07:34] LABS: CREATININE 1.5 mg/dL (0.6-1.3); POTASSIUM 5.2 mmol/L (3.5-4.5)
[2024-11-03] MEDS ORDERED: SPIRONOLACTONE 25 MG TABLET PO SCH (09:00)
[2024-11-03] MEDS ORDERED: lisinopriL 20 MG TABLET PO SCH (09:00)
[2024-11-03] MEDS: SODIUM ZIRCONIUM CYCLOSILICATE 5 GM PACKET PO ONE (11:30)
[2024-11-03] MEDS: MULTIVITAMIN TABLET PO SCH (11:31)
[2024-11-03] MEDS: SODIUM BICARBONATE ABBOJECT 50 MEQ/50 ML SYRINGE IVP ONE (11:32)
[2024-11-03] MEDS: LEFLUNOMIDE 20 MG PO SCH (11:32)
[2024-11-03] MEDS: DEXTROSE 50% ABBOJECT 25 GM/50 ML SYRINGE IVP ONE ×2 (12:51→12:58)
[2024-11-03] MEDS: INSULIN REGULAR, HUMAN 300 UNIT/3 ML PEN IVP ONE ×2 (12:52→12:56)
[2024-11-03 15:37] LABS: CALCIUM 7.9 mg/dL (8.5-10.3); CREATININE 1.4 mg/dL (0.6-1.3); POTASSIUM 4.6 mmol/L (3.5-4.5)
--- NOTE | 2024-11-03 16:05 | Discharge Summary ---
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 Cream ordered, already established with wound care Acute kidney failureimproving, underlying CKD Hypoglycemiaresolved Hyperkalemiaresolved HPI History of Present Illness: 79-year-old female who has been in the ER before with dehydration and acute kidney injury. 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 She came into the ER today with weakness. She denies fever, chills. States she has been eating and drinking okay. Her says that she has not. Today, she felt increasingly weak and had a fall without syncope and without injury. She reports pain intermittently secondary to her pyoderma. Denies chest pain, dyspnea, urinary or bowel abnormalities. In the ED, lower extremity CT was performed which showed a large medial thigh ulcer with only minimal cellulitic change and no evidence of neck Fash, myositis, osteomyelitis. She was noted to have a potassium of 6.4 and a creatinine of 2.7. Her creatinine was 1.9 when she was here last week. She was treated with Lokelma, D50, insulin. Repeat BMP was performed which showed resolution of her hyperkalemia, but did show a glucose of 46. She received an additional amp of D50 for this. Due to what is potentially sepsis secondary to cellulitis with acute kidney injury, hospitalist was contacted for admission for initiation of IV antibiotics and to workup her kidney failure CONSULTS | PROCEDURES Consultations: General surgery HOSPITAL COURSE Hospital Course: She was admitted to the hospital and started on aggressive IV fluid resuscitation. Received several doses of insulin/D50 as well as calcium and Lokelma. Today, her creatinine is much improved, and her potassium is within normal range. I asked the general surgeon to see her regarding her pre-existing leg wound. 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 She is already established with a wound care clinic. While she was here, she was on IV ciprofloxacin for a colonization of her wound with Pseudomonas. She is being discharged to continue her course of ciprofloxacin as previously ordered by another provider. I am sending her home with some bicarb pills for her to take over the next few days while her kidneys recover. She had an episode of hospital associated delirium overnight. says she has no history of this, but she was awakened at 1 in the morning to move out of her ICU room. I instructed him to report this to her primary care provider if this continues ALLERGIES Allergies Allergy/AdvReac Type Severity Reaction Status Date / Time ketoconazole Allergy Unknown Verified 11/01/24 15:15 latex Allergy Rash Verified 11/01/24 15:15 MEDICATIONS Ambulatory Orders Medication Instructions Recorded Confirmed lisinopril 20 mg tablet 40 mg PO DAILY 07/11/13 11/02/24 lovastatin 40 mg tablet (Mevacor) 40 mg PO DAILY 07/11/13 11/02/24 carvedilol 25 mg tablet 25 mg PO BID 08/08/24 11/02/24 gabapentin 300 mg capsule 300 - 600 mg PO BID 08/08/24 11/02/24 levothyroxine 88 mcg tablet 88 mcg PO QDAC 08/08/24 11/02/24 apixaban 5 mg tablet (Eliquis) 5 mg PO BID #60 tabs 10/30/24 11/02/24 alendronate 70 mg tablet 70 mg PO ENGLISH 11/02/24 11/02/24 leflunomide 20 mg tablet 20 mg PO DAILY 11/02/24 11/02/24 multivitamin (Daily Multi-Vitamin 1 tab PO DAILY 11/02/24 11/02/24 tablet) oxycodone-acetaminophen 5 mg-325 1 tab PO Q6H PRN pain (scale score 11/02/24 11/02/24 mg tablet (Percocet) 4-6) spironolactone 25 mg tablet 25 mg PO DAILY 11/02/24 11/02/24 silver sulfadiazine 1 % topical 1 applic topical BID 10 days #20 11/03/24 cream grams sodium bicarbonate 650 mg tablet 1,300 mg (2 x 650 mg) PO BID 5 11/03/24 days #20 tabs PHYSICAL EXAM AT DISCHARGE General Appearance: positive No acute distress and Alert Eyes Bilateral: positive Normal inspection and PERRL ENT: positive ENT inspection nml and Pharynx nml Neck: positive Nml inspection Respiratory: positive Chest non-tender and No respiratory distress Cardiovascular: positive Regular rate & rhythm Peripheral Pulses: positive 2+ Abdomen: positive Non-tender Skin: positive Color nml and Other (Calcifylactic wound on the inside left thigh) Extremities: positive Non-tender Neurologic/Psychiatric: positive Oriented x3 LABS 11/03/24 06:57 11/03/24 15:15 FOLLOW UP Follow Up: With PCP, Wound care TIME SPENT Time Spent in Discharge (Minutes): 35 Discharge Plan Discharge Patient Disposition: Home, Self Care Condition: Serious Prescriptions: New silver sulfadiazine 1 % Cream 1 applic topical BID 10 Days Qty: 20 0RF sodium bicarbonate 650 mg Tablet 1,300 mg PO BID 5 Days Qty: 20 0RF Continued lovastatin [Mevacor] 40 MG tablet 40 mg PO DAILY lisinopril 20 MG tablet 40 mg PO DAILY leflunomide 20 mg tablet 20 mg PO DAILY multivitamin [Daily Multi-Vitamin] Tablet 1 tab PO DAILY alendronate 70 mg tablet 70 mg PO ENGLISH Rx Instructions: Sundays spironolactone 25 mg tablet 25 mg PO DAILY Rx Instructions: for blood pressure oxycodone-acetaminophen [Percocet] 5-325 mg tablet 1 tab PO Q6H PRN (Reason: pain (scale score 4-6)) Rx Instructions: Take 1-2 every 6 hours as needed for pain levothyroxine 88 mcg tablet 88 mcg PO QDAC Rx Instructions: Take 1 tablet (0.088 mg) by mouth every morning away from food and other medications gabapentin 300 mg capsule 300 - 600 mg PO BID carvedilol 25 mg tablet 25 mg PO BID Rx Instructions: Take 1 tablet by mouth twice a day Eliquis 5 mg tablet 5 mg PO BID Qty: 60 3RF Rx Instructions: for blood thinner, replaces warfarin Activity Restrictions: No Restrictions Diet: Regular Health Concerns: You came into the hospital with dehydration, worsening wound in your leg due to calciphylaxis, and a acute on chronic kidney failure resulting in high levels of potassium. You were admitted into the hospital so that we can give you aggressive IV fluid resuscitation and start you on the antibiotics that you were supposed to be taking in the outpatient setting. Your kidney function has much improved, and I am sending you home with a 5-day course of sodium bicarb tablets to help with your kidneys and would encourage you start taking your Cipro and follow-up with primary care as well as the wound care clinic. Please continue to drink plenty of water, and follow-up with your primary care provider within 1 to 2 weeks Print Language: Danish Patient Instructions: Hyperkalemia Dc Stand Alone Forms: PCP List Follow-up Care: Keely Cuevas PA-C [Primary Care Provider] -"
[2024-11-03 18:35] VITALS: BP 124/54; TEMP 99.5; O2SAT 93
[2024-11-03] MEDS: KETOROLAC 15 MG/ML VIAL IVP STA (19:10)
[2024-11-03] MEDS: ACETAMINOPHEN 500 MG TABLET PO SCH (19:10)
== END 2024-11-03 21:20 | disposition home or self-care (01) | DRG 603 ==
LOC: ICU 14:51 → ED 14:51 → ICU 21:00 → MS3 11-03 00:32
PROVIDERS: ADMIT Nurse Practitioner Acute Care; ATTEND Nurse Practitioner Acute Care
DX: R94.31 Abnormal electrocardiogram [ECG] [EKG]; E16.2 Hypoglycemia, unspecified; L97.129 Non-pressure chronic ulcer of left thigh with unspecified severity; H91.90 Unspecified hearing loss, unspecified ear; Z79.890 Hormone replacement therapy; L08.0 Pyoderma; I12.9 Hypertensive chronic kidney disease with stage 1 through stage 4 chronic kidney disease, or unspecified chronic kidney disease; Z79.899 Other long term (current) drug therapy; E87.5 Hyperkalemia; L03.116 Cellulitis of left lower limb; N17.9 Acute kidney failure, unspecified; Z79.01 Long term (current) use of anticoagulants; N18.32 Chronic kidney disease, stage 3b; N18.9 Chronic kidney disease, unspecified